=== PATIENT | male | born 1965 | race Caucasian/White ===

== ENCOUNTER 2024-05-10 13:37 | Inpatient (IN) | payer BC, SELFPAY ==
[2024-05-10] VITALS (7 sets, daily range): BP systolic 128–152; BP diastolic 67–95; BMI 24.1; BMI 23.9
--- NOTE | 2024-05-10 10:24 | ED.GENMED ---
ED Provider Triage
<Itz Cadet PA-C - Last Filed: 05/10/24 10:29>
-
Patient seen by provider in Triage?: Seen in Triage
Attestation: A medical screening examination has been initiated by a qualified medical provider. Based on the assessment performed at this time, it has been determined that an emergent medical condition may exist and the patient has been informed
that further medical evaluation and possible additional diagnostic testing may be needed.
HPI: 58-year-old male with past medical history of insulin-dependent diabetes presented to the ER with her that developed over the end and then noticing left lower remedy erythema, edema, pain and difficulty ambulating secondary to the pain. Has a
history of amputation of the toes to the right lower extremity. Has been taking some Advil for the pain. No other URI-like symptoms patient is on the full. Labs including blood cultures and lactic acid ordered. Given history I would lean
towards patient may need IV antibiotics and further evaluation on an inpatient basis.
GENERAL: Alert , in no apparent distress
EYE: No visual abnormalities.
NECK: Trachea midline
ENT: No visible abnormalities.
LUNGS: No acute respiratory distress
NEUROLOGICAL: Alert and oriented
SKIN: Skin intact. No visible changes.
MUSCULOSKELETAL: Moving extremities normally
PSYCH: Normal and appropriate interaction.
This is a medical evaluation conducted in person to initiate diagnostic evaluation and provide initial therapeutics. Please see further documentation by the treating clinician.
History of Present Illness
<Itz Cadet PA-C - Last Filed: 05/10/24 10:29>
General
Chief Complaint: Skin Problem
Time Seen by Provider: 05/10/24 11:10
<Cookie Gutierres PA-C - Last Filed: 05/10/24 12:28>
General
Source: patient
Exam Limitations: none
Nursing documentation reviewed up to this point in time: agreed with
History of Present Illness
History of Present Illness:
58 Y/O M H/O IDDM, htn, hld
here with L leg swelling and redness the past 2 days
pt says he actually started 5 days ago with feeling of fever/chills but didn't take his temp. he had no other sypmtoms
the following day he also had the chills intermittently and mild pain int he medial left ankle
pt says it was just sensitive to touch, felt almsot like he burned his skin but didn't have any redness
pt says the past 2-3 days he has occasinaolly had chills but not rigors like hw as having originally and the pain got a little worse in his left calf/ankle region
then the redness started yesterday but was faint
then today he has felt the redness signfiicantlyincrease
pt has h/o R sided osteomyelitis in his foot and required amputation
he called his diesel inspector and was told to come in
he had motrin this morning at 6 am
no vomiting, cold symptoms, numbness
Past History
<Itz Cadet PA-C - Last Filed: 05/10/24 10:29>
Past History
ED Past Medical History: HTN, Hypercholesterolemia and IDDM
ED Past Surgical History: Orthopedic (ampuation)
Social History
Tobacco: Non-smoker
Alcohol: None
Drug: None
Personal:
Living: with family
Review of Systems
<Cookie Gutierres PA-C - Last Filed: 05/10/24 12:28>
Review of Systems
Allergies reviewed?: Yes
All Other Systems: Not applicable
Phy Exam
<Cookie Gutierres PA-C - Last Filed: 05/10/24 12:28>
Physical Exam
Physical Exam:
GENERAL: Alert , in no apparent distress
EYE: pupils equal and reactive
NECK: Supple
ENT: o/p clr, mmm.
CARDIAC: Regular rate and rhythm . dp and pt pulses are dopplered easily
LUNGS: Clear breath sounds bilaterally, no acute respiratory distress, no wheezes/rales/rhonchi
ABDOMEN: Soft, without focal tenderness, no r/g, no cvat, normal bowel sounds
NEUROLOGICAL: Alert and oriented, no focal neuro deficits
SKIN: Warm and dry, skin intact. marked erythema of L prox foot/ankle/and anterior pretibial region up near his medial knee on the left
minimal tednerness
sensation intact
no obvious wounds but he does have plantar wart or open callus on the platnar L great toe region
and a few papules left medial ankle
calf and compartment soft
full rom of the joints
MUSCULOSKELETAL: No edema, well perfused. neg cordelia's sign
PSYCH: Normal and appropriate interaction.
Course
<Itz Cadet PA-C - Last Filed: 05/10/24 10:29>
Orders/Labs/Results
Orders:
Orders
05/10/24 10:39
Basic Metabolic Panel Urgent
Complete Blood Count/With Diff Urgent
Lactic Acid Q4H
Comment: CANCEL 2nd LACTIC ACID IF 1st LACTIC ACID IS LESS THAN 2
Blood Culture Q30M
VONDA Source: Blood/Venous
Specimen Description:
05/10/24 11:17
Venous Doppler Lwr Ext Bilat [US Periph Venous LOWER Ext Marcus] Urgent
Comment:
Reason For Exam: swelling
05/10/24 12:01
Blood Culture Q30M
VONDA Source: Blood/Venous
Specimen Description:
05/10/24 12:03
0.9% Sodium Chloride 1000 ml [Nss] 1,000 ml IV BOLUS
Piperacillin/Tazo 4.5 Gram [Zosyn] 4.5 gram in 100 ml IV NOW
CR Foot - Left Min 3 Views Urgent
Comment:
Reason For Exam: severe redness foot/ankle, diabetic
Tibia/Fibula, Left 2 View [CR Leg Tibia/fibula Left 2 Vw] Urgent
Comment:
Reason For Exam: cellulitis, diabetic
05/10/24 12:05
Vancomycin [Vancocin] 2,000 mg 0.9% Sodium Chloride 500 ml [Nss] 500 ml IV NOW
Abnormal Lab Results
05/10/24
10:39
WBC 16.0 H 10^3/uL
(4.8-10.8)
RBC 3.82 L 10^6/uL
(4.70-6.10)
Hgb 12.1 L g/dL
(13.0-18.0)
Hct 33.8 L %
(39.0-52.0)
MCH 31.7 H pg
(27.0-31.0)
RDW 11.3 L %
(11.5-14.5)
Abs Immat Gran (auto) 0.1 H 10^3/uL
(0-0.05)
Absolute Neuts (auto) 12.4 H 10^3/uL
(1.4-6.5)
Absolute Monos (auto) 2.0 H 10^3/uL
(0.1-0.6)
Neutrophils % 77.6 H %
(42.2-75.2)
Lymphocytes % 9.2 L %
(20.5-51.1)
Monocytes % 12.2 H %
(1.7-9.3)
Sodium 134 L mmol/L
(135-145)
Chloride 96 L mmol/L
(98-107)
Glucose 269 H mg/dl
(70-99)
05/10/24 10:39
05/10/24 10:39
Vital Signs
Initial and Last Documented VS:
Initial Vital Signs
Temp Pulse Resp BP Pulse Ox
36.8 C 86 18 136/70 100
05/10/24 10:21 05/10/24 10:21 05/10/24 10:21 05/10/24 10:21 05/10/24 10:21
Last Documented Vital Signs
Temp Pulse Resp BP Pulse Ox
37.1 C 82 23 145/88 99
05/10/24 12:00 05/10/24 12:00 05/10/24 12:00 05/10/24 11:53 05/10/24 12:03
<Cookie Gutierres PA-C - Last Filed: 05/10/24 12:28>
Orders/Labs/Results
Orders:
Orders
05/10/24 10:39
Basic Metabolic Panel Urgent
Complete Blood Count/With Diff Urgent
Lactic Acid Q4H
Comment: CANCEL 2nd LACTIC ACID IF 1st LACTIC ACID IS LESS THAN 2
Blood Culture Q30M
VONDA Source: Blood/Venous
Specimen Description:
05/10/24 11:17
Venous Doppler Lwr Ext Bilat [US Periph Venous LOWER Ext Marcus] Urgent
Comment:
Reason For Exam: swelling
05/10/24 12:01
Blood Culture Q30M
VONDA Source: Blood/Venous
Specimen Description:
05/10/24 12:03
0.9% Sodium Chloride 1000 ml [Nss] 1,000 ml IV BOLUS
Piperacillin/Tazo 4.5 Gram [Zosyn] 4.5 gram in 100 ml IV NOW
CR Foot - Left Min 3 Views Urgent
Comment:
Reason For Exam: severe redness foot/ankle, diabetic
Tibia/Fibula, Left 2 View [CR Leg Tibia/fibula Left 2 Vw] Urgent
Comment:
Reason For Exam: cellulitis, diabetic
05/10/24 12:05
Vancomycin [Vancocin] 2,000 mg 0.9% Sodium Chloride 500 ml [Nss] 500 ml IV NOW
Abnormal Lab Results
05/10/24
10:39
WBC 16.0 H 10^3/uL
(4.8-10.8)
RBC 3.82 L 10^6/uL
(4.70-6.10)
Hgb 12.1 L g/dL
(13.0-18.0)
Hct 33.8 L %
(39.0-52.0)
MCH 31.7 H pg
(27.0-31.0)
RDW 11.3 L %
(11.5-14.5)
Abs Immat Gran (auto) 0.1 H 10^3/uL
(0-0.05)
Absolute Neuts (auto) 12.4 H 10^3/uL
(1.4-6.5)
Absolute Monos (auto) 2.0 H 10^3/uL
(0.1-0.6)
Neutrophils % 77.6 H %
(42.2-75.2)
Lymphocytes % 9.2 L %
(20.5-51.1)
Monocytes % 12.2 H %
(1.7-9.3)
Sodium 134 L mmol/L
(135-145)
Chloride 96 L mmol/L
(98-107)
Glucose 269 H mg/dl
(70-99)
05/10/24 10:39
05/10/24 10:39
Vital Signs
Initial and Last Documented VS:
Initial Vital Signs
Temp Pulse Resp BP Pulse Ox
36.8 C 86 18 136/70 100
05/10/24 10:21 05/10/24 10:21 05/10/24 10:21 05/10/24 10:21 05/10/24 10:21
Last Documented Vital Signs
Temp Pulse Resp BP Pulse Ox
37.1 C 82 23 145/88 99
05/10/24 12:00 05/10/24 12:00 05/10/24 12:00 05/10/24 11:53 05/10/24 12:03
<Cookie Gutierres PA-C - Last Filed: 05/10/24 12:28>
MDM/Problems Addressed
Differential Diagnosis Includes:
celultis, osteo, nec fasc, PAD
MDM/Problems Addressed:
58 y/o M IDDM with significant cellulitis L foot/ankle/pretibial region
started with fever/chills on and tuesday, minimal discomfort left ankle without redness; redness started yesterday and much worse ; line drawn aorund it
normal pulse
afebrile
wbc 16 left shift
bg 290s
h/o previous osteo R foot requiring amp
do not suspect nec fasc, not really in pain
getting xrays
iv abx
<Cookie Gutierres PA-C - Last Filed: 05/10/24 12:28>
*Critical Care Note
Total Time (30-74mins, 75-104mins- exclusive of procedures): Not Applicable
ED Attending Note
<Itz Cadet PA-C - Last Filed: 05/10/24 10:29>
-
Portions of this chart may have been created with voice recognition software.� Occasional wrong word or��sound alike� substitutions may have occurred due to the inherent limitations of voice recognition software.
Discharge Plan
Departure
Patient Disposition: Admit
Date of Disposition: 05/10/24
Time of Disposition: 12:11
Presentation/result/management discussed w/ accepting MD/DO: Hospitalist
Discharge Problem:
Cellulitis
Prescriptions:
No Action
clopidogrel 75 mg tablet
75 mg PO DAILY
lisinopril 10 mg tablet
10 mg PO DAILY
insulin lispro [Humalog KwikPen Insulin] 100 unit/mL insulin pen
0 unit SC AC
Patient Comments:
08/25/22-if bs is over 150 plus one for every 20 carbs
insulin glargine [Basaglar KwikPen U-100 Insulin] 100 unit/mL (3 mL) insulin pen
25 unit SC DAILY
atorvastatin 10 mg tablet
10 mg PO DAILY
aspirin 81 mg Tablet,Delayed Release (Dr/Ec)
81 mg PO DAILY
diphenhydramine HCl 25 mg Capsule
25 mg PO Q4HPRN PRN (Reason: itching/hives) Qty: 0 0RF
acetaminophen 325 mg Tablet
650 mg PO Q6HPRN PRN (Reason: mild pain/ fever>100.5F) Qty: 0 0RF
gabapentin 300 mg Capsule
300 mg PO HS Qty: 30 0RF
ammonium lactate 12 % Lotion
1 applic topical BID Qty: 225 0RF
linezolid 600 mg tablet
600 mg PO BID Qty: 28 0RF
Interventions
Interventions:
*Risk Screen - Suicide Last Done: 05/10/24 10:24
*General Assessment Last Done: 05/10/24 12:01
*Neglect/Abuse Screening Last Done: 05/10/24 10:24
ED- Fall Risk Assessment Last Done: 05/10/24 10:26
*ED COVID-19 Vaccine History Last Done: 05/10/24 10:27
ED-Skin Assessment Last Done: 05/10/24 12:03
Discharge Date and Time
Print Language: DUTCH
[2024-05-10 10:58] LABS: % Basophils 0.3 % (0-2); % Eosinophils 0.2 % (0-6); % Immature Granulocytes 0.5 % (0-0.5); % Lymphocytes 9.2 % (20.5-51.1); % Monocytes 12.2 % (1.7-9.3); % Neutrophils 77.6 % (42.2-75.2); Absolute Basophils 0.1 10^3/uL (0-0.2); Absolute Immature Granulocytes 0.1 10^3/uL (0-0.05); Absolute Lymphocytes 1.5 10^3/uL (1.2-3.4); Absolute Neutrophils 12.4 10^3/uL (1.4-6.5); Hematocrit 33.8 % (39.0-52.0); Hemoglobin 12.1 g/dL (13.0-18.0); Mean Corp Hgb Conc. 35.8 g/dL (33.0-37.0); Mean Corpuscular Hgb 31.7 pg (27.0-31.0); Mean Corpuscular Volume 88.5 fL (80.0-94.0); Mean Platelet Volume 9.8 fL (7.4-10.4); Nucleated Red Blood Cells % 0 % (-); Platelet Count 268 10^3/uL (130-400); Red Blood Cell Count 3.82 10^6/uL (4.70-6.10); Red Cell Dist. Width 11.3 % (11.5-14.5)
[2024-05-10 11:10] LABS: Lactic Acid 1.8 mmol/L (0.7-2.0)
[2024-05-10 11:12] LABS: Blood Urea Nitrogen 17 mg/dl (9-20); Calcium 9.4 mg/dl (8.4-10.2); Carbon Dioxide 23 mmol/L (22-30); Chloride 96 mmol/L (98-107); Estimated Creatinine Clearance 61 ml/min; Glucose 269 mg/dl (70-99); Potassium 3.8 mmol/L (3.5-5.1); Sodium 134 mmol/L (135-145); eGFR > 60.00
[2024-05-10] MEDS: ZOSYN 100 IV (12:10)
[2024-05-10] MEDS: NSS 1000 IV (12:10)
--- NOTE | 2024-05-10 12:39 | HPS.HSE ---
Family Physician
-
Family Physician: Chantel Pan
Chief Complaint
-
Left lower extremity erythema, fever
History of Present Illness
58-year-old male from home complaining of fever Tuesday and Tuesday 6 days ago and left lower extremity and foot erythema along the foot/ankle/pretibial region with minimal discomfort in the left ankle he reports started this a.m. while driving his
daughter to school. He states he did not notice until this a.m. that the erythema was extending up the medial aspect of his left foot. He had concerns given he had prior amputation of all of his right toes below the proximal metatarsals and August
2021 with revision December 2021 at [facility]. He denies current fever, chills, headache, chest pain, palpitations, shortness breath, cough, abdominal pain, nausea, vomiting, diarrhea, urinary symptoms
He has past medical history of type 1 diabetes mellitus Dx age 5, with previous osteomyelitis right foot requiring amputation of all toes below the proximal phalanx in August 2021 requiring amputation then revision of surgery by Dr. Rae Mills at
[facility] in December 2021, essential HTN, PAD, HLD
Medical History
Past Medical History
Past Medical History: Reports Other (type 1 diabetes, hypertension, hypercholesterolemia, osteomyelitis of right toes status post amputation all toes below phalanx level August 2021 peripheral arterial disease )
Past Surgical History: Reports Other
Additional Past Surgical History:
Cataract extraction bilaterally with lens implants 15 years ago
osteomyelitis of right toes status post amputation all toes below phalanx level August 2021
Social History
Tobacco: Non-smoker
Alcohol: Occasional
Drug: None
Personal:
Living: Alone
Employment: Employed (senior quality assurance analyst)
Family History
Family History: Not pertinent
Allergies / Home Medications
Allergies reflects when Allergies were last updated in [facility].
Home Medications with original date entered in [facility]
Allergy/Medication List:
Allergies
Allergy/AdvReac Type Severity Reaction Status Date / Time
No Known Allergies Allergy Unverified 08/25/22 11:15
Home Medications
aspirin 81 mg tablet,delayed release 81 mg PO DAILY Blood clot prevention/tx 08/25/22
atorvastatin 10 mg tablet 10 mg PO DAILY High cholesterol 08/25/22
insulin glargine 100 unit/mL (3 mL) subcutaneous pen (Basaglar KwikPen U-100 Insulin) 22 unit SC DAILY Diabetes 08/25/22
insulin lispro 100 unit/mL subcutaneous pen (Humalog KwikPen (U-100) Insulin) 8 unit SC AC Diabetes 08/25/22
lisinopril 10 mg tablet 10 mg PO DAILY Blood pressure 08/25/22
ibuprofen 200 mg tablet (Advil) 600 mg PO DAILYPRN PRN mild pain 05/10/24
Review of Systems
-
History Source: Patient
A 12 point ROS was completed and negative except as noted: Yes
Constitutional: Reports Fever (6 days ago); Denies Chills
EENT: Denies Sore Throat or Runny Nose
Respiratory: Denies Cough, Hemoptysis or Trouble Breathing
Cardiac: Denies Chest Pain, Diaphoresis, Palpitations or Syncope
Abdomen/GI: Denies Abdominal Pain, Nausea, Vomiting, Diarrhea, Constipated or Bloody Stools
: Denies Dysuria, Frequency, Flank Pain, Incontinence, Difficulty Voiding or Discharge
Musculoskeletal: Reports Other (Erythema from dorsal foot extending up medial aspect of left lower extremity just below knee); Denies Joint Pain, Joint Swelling or Edema
Skin: Denies Itching or Rash
Neurological: Denies Dizzy, Headache or Weakness
Endocrine: Reports No Symptoms
Hematologic/Lymphatic: Reports No Symptoms
Psych: Reports Calm
Physical Exam
Vital Signs
Vital Signs
Temp Pulse Resp BP Pulse Ox
98.8 F 82 23 145/88 99
05/10/24 12:00 05/10/24 12:00 05/10/24 12:00 05/10/24 11:53 05/10/24 12:03
Physical Exam
General: Comfortable and Conversant; No Pain, Fever or Chills
HEENT: NormoCephalic, Anicteric, Moist mucous membranes, PERRLA, [place] Conjunctivae and No Ptosis
Respiratory: Clear; No Wheezes, Rales or Rhonchi
Cardiac: S1/S2, Regular Rhythm, Peripheral Edema and Other (Erythema from dorsal foot extending up medial aspect of left lower extremity just below knee); No Murmur, Rub, Gallop, Calf Tenderness or Nikko's Sign
Breast: Deferred by me
GI: Soft, Non Tender, Non Distended, Normal Bowel Sounds and No Hepatosplenomegaly
Rectal: Deferred by Provider
Genito-urinary: Deferred by me
Musculoskeletal: No Clubbing, No Cyanosis, No Edema and Other (Erythema from dorsal foot extending up medial aspect of left lower extremity just below knee no visible open wounds)
Skin: Warm and Dry; No Rash or Jaundice
Neuro: AO x 3, No Motor Deficits, Nonfocal/grossly intact, Cranial Nerves Intact and DTR's Intact & Symmetrical; No Slurred Speech, Facial Droop, Tremors or Sedated
Psych: Calm
Laboratory Results
-
05/10/24 10:39
05/10/24 10:39
Laboratory Results
Lactic Acid Cancelled 05/10/24 14:30
Impression/Plan
-
Impression/plan:
Admit to [facility]
#Left lower extremity cellulitis diabetic male
AUGUST 2022 Diabetic foot infection of left third/fourth toe with possible osteomyelitis, gangrene, ulcer status postdebridement of second and third distal and proximal phalanges
HX amputation right foot toes 2021
WBC 16 with left shift, currently afebrile 98.8F HR 82, BP 145/88
-Blood cultures x 2 ordered in ER
-Follow CBC, CMP
-IV Vancomycin, IV Zosyn
-Consult podiatry
Peripheral ultrasound bilateral lower extremities no acute DVT
#IDDM Dx age 5�uncontrolled
BS 269
-Accu-Cheks with SSI mild, check HgbA1c
-Continue Basaglar 22 units subcu daily changed to at bedtime
-Increase insulin lispro from 8 units with meals to 10 units with meals
#HTN�benign
BP 145/88
- cont lisinopril 10 mg daily
#PAD
Patient reports did not have angio on his right leg before requiring eventual amputation all toes below the proximal metatarsals
-Records of most recent vascular scan from February 2024 patient has on his phone I was unable to get copy from my email
Continue aspirin (was on Plavix 75 mg daily in August 2022)
DVT prophylaxis
Subcu heparin
Full code
--- NOTE | 2024-05-10 12:55 | W.PN.UPDATE ---
Update Note
Progress Note Update
This note serves as an addendum to the H&P by incident response consultant Kelly DUGGAN
HPI:
58M HX IDDM, HX previous osteo RIGHT foot requiring TMT amputation seen at ER
For evaluation of fever/chills over the weekend with cellultitis
- Associated with minimal discomfort left ankle without redness
- New onset of redness started yesterday and much worse today with clear demarcation
VS: afebrile
PE:
GENERAL: Alert , in no apparent distress
EYE: No visual abnormalities.
NECK: Trachea midline
ENT: No visible abnormalities.
LUNGS: No acute respiratory distress
NEUROLOGICAL: Alert and oriented
SKIN: Skin intact. No visible changes.
MUSCULOSKELETAL: erythematous Lt Cira with warmth hyperaesthesia
PSYCH: Normal and appropriate interaction.
Data:
WCC 16 left shift
BS 290s
XR Lt foot: pending
XR Tibia and Fibula: pending report
Last hospitalist admission: Date of Admission: 08/25/22 -Date of Discharge: 08/30/22
Principal Discharge diagnosis :
1. Diabetic foot infection of left third/fourth toe with possible osteomyelitis, gangrene, ulcer status postdebridement of second and third distal and proximal phalanges
2. GORDON-resolved
Chronic Discharge diagnosis :
Type 1 diabetes mellitus, essential hypertension, peripheral arterial disease, hyperlipi
ASSESSMENT & PLAN
Significant cellulitis LEFT foot/ankle/pretibial region:
Erythematous Lt Cira with warmth hyperaesthesia
HX previous osteo RIGHT foot requiring TMT amp @ [facility]
Clinically do not suspect necrotizing fascitis
NEG MRSA screen on 08/27/22
- BCx sent
- agree with empiric vancomycin and Zosyn
- Trend WCC and bands
- ID consult in AM
Inadequate DM control due to acute cellulitis
- add ISS mod
- cont. lantus 22 HS
- Increased Insulin lispro to [address] of 8U AC
- f/u A1C
Benign HTN
Nl eGFR and nl Cr
- Cont. Lisinopril
- avoid NSAIDS
HLD
- on Atorvastatin 10 qpm
-cont. baby ASA
DVT Px: SQH
Full code
IP MS
[2024-05-10] MEDS: VANCOCIN 535 MG IV (13:01)
[2024-05-10 17:38] LABS: Glucose - Point of Care 268 mg/dl (70-99)
[2024-05-10] MEDS: ZOSYN 50 IV (18:16)
[2024-05-10] MEDS: NOVOLOG FLEXPEN 10 UNITS SC (18:17)
[2024-05-10] MEDS: NOVOLOG FLEXPEN-MODERATE RESISTANCE 5 UNITS SC (18:18)
--- NOTE | 2024-05-10 19:27 | PHA.VAN.IN ---
Assessment
- Assessment
Renal Function: Appears elevated from baseline (08/30/22 BASELINE SCR: 1.2)
Concomitant Antimicrobials: ZOSYN
- Previous Dosing Experience
Previous Regimen: 750MG IV Q12H
Date of Regimen: 08/30/22
Provided Trough of: UNKNOWN
Provided AUC of: 490 PREDICTED
Patient's SCR is: Elevated compared to previous dosing experience (08/30/22 SCR: 1.2)
Patient's weight is: Decreased compared to previous dosing experience (08/26/22 WT = 75.8 KG)
AUC Dosing Plan
- Dosing Variables
Dosing Weight (kg): 71.9
Dosing CrCl (ml/min): 61
Vd coefficient (L/kg): 0.7
- Empiric Dosing
Initial / Loading Dose: 1750MG
Maintenance Regimen: 1500MG IV Q24H
Estimated AUC (mcg*h/mL): 564
Estimated Peak (mcg*h/mL): 40.7
Estimated Trough (mcg/ml): 11.8
Estimated Half Life (H): 12.6
Pharmacokinetics Vancomycin I
- -
Patient Age: 58
Patient Sex: Male
Vancomycin Day #: 1
Indication: Skin And Soft Tissue (CELLULITIS OF [L] FOOT )
Requesting Provider: URBAN
Height / Weight:
Height 5 ft 8 in
Actual Weight 71.299 kg
Pertinent Past Medical History: UNCONTROLLED DM; PRIOR AMPUTATIONS
- Vital Signs / Lab Results
Temp Pulse Resp BP Pulse Ox
98.2 F 82 18 152/72 99
05/10/24 17:33 05/10/24 17:33 05/10/24 17:33 05/10/24 17:33 05/10/24 17:33
Lab Results - Hematology
05/10/24
10:39
WBC 16.0 H
Lab Results - Chemistry
05/10/24
10:39
BUN 17
Creatinine 1.3
Estimated Creat Clear 61
05/10/24 05/10/24
10:39 14:30
Lactic Acid 1.8 Cancelled
[2024-05-10 21:13] LABS: Glucose - Point of Care 164 mg/dl (70-99)
[2024-05-10] MEDS: TYLENOL 650 MG PO (21:17)
[2024-05-10 23:57] LABS: Glucose - Point of Care 178 mg/dl (70-99)
[2024-05-11] MEDS: ZOSYN 50 IV ×2 (00:01→05:58)
[2024-05-11] MEDS: ROXICODONE 5 MG PO ×5 (00:47→21:38)
[2024-05-11 06:11] LABS: Glucose - Point of Care 163 mg/dl (70-99)
[2024-05-11] MEDS: VANCOCIN 530 MG IV (06:34)
[2024-05-11] MEDS: LANTUS 0.22 UNITS SC (06:38)
[2024-05-11 07:23] VITALS: BP 138/67
[2024-05-11 07:27] LABS: Glucose - Point of Care 175 mg/dl (70-99)
[2024-05-11 07:54] LABS: % Basophils 0.3 % (0-2); % Eosinophils 1.1 % (0-6); % Immature Granulocytes 0.4 % (0-0.5); % Lymphocytes 12.6 % (20.5-51.1); % Monocytes 9.8 % (1.7-9.3); % Neutrophils 75.8 % (42.2-75.2); Absolute Eosinophils 0.2 10^3/uL (0-0.7); Absolute Immature Granulocytes 0.1 10^3/uL (0-0.05); Absolute Lymphocytes 1.7 10^3/uL (1.2-3.4); Absolute Monocytes 1.3 10^3/uL (0.1-0.6); Absolute Neutrophils 10.1 10^3/uL (1.4-6.5); Hematocrit 30.6 % (39.0-52.0); Hemoglobin 10.9 g/dL (13.0-18.0); Mean Corp Hgb Conc. 35.6 g/dL (33.0-37.0); Mean Corpuscular Volume 89.7 fL (80.0-94.0); Nucleated Red Blood Cells % 0 % (-); Platelet Count 259 10^3/uL (130-400); Red Blood Cell Count 3.41 10^6/uL (4.70-6.10); Red Cell Dist. Width 11.4 % (11.5-14.5); White Blood Cell Count 13.3 10^3/uL (4.8-10.8)
[2024-05-11 08:48] LABS: ALT (SGPT) 17 U/L (0-50); AST (SGOT) 23 U/L (17-59); Albumin 3.2 g/dl (3.5-5.0); Alkaline Phosphatase 73 U/L (38-126); Blood Urea Nitrogen 11 mg/dl (9-20); Calcium 8.5 mg/dl (8.4-10.2); Carbon Dioxide 25 mmol/L (22-30); Chloride 101 mmol/L (98-107); Estimated Creatinine Clearance 80 ml/min; Glucose 151 mg/dl (70-99); Potassium 3.8 mmol/L (3.5-5.1); Sodium 137 mmol/L (135-145); Total Protein 5.9 g/dl (6.3-8.2); eGFR > 60.00
[2024-05-11] MEDS: ASPIR LOW (ENTERIC COATED) 81 MG PO (08:48)
[2024-05-11] MEDS: NOVOLOG FLEXPEN SC ×2 (08:48→13:34)
[2024-05-11] MEDS: ZESTRIL 10 MG PO (08:48)
[2024-05-11] MEDS: LIPITOR 10 MG PO (08:49)
[2024-05-11] MEDS: NOVOLOG FLEXPEN-MODERATE RESISTANCE SC ×3 (08:49→16:40)
--- NOTE | 2024-05-11 09:15 | PN.DE.MGMTRT ---
Insulin Management
- -
05/11/2024: Diabetes Management Consult
58 year old male with PMH: IDDM, hx of Right foot Osteo requiring TMT amputation. Presented for evaluation of fever/chills with cellulitis.
States he was taking Lantus 22 units which he takes daily in the morning and Humalog 8 units AC. Uses a CGM- Dexcom G7. He [facility] Endocrine [facility]i [facility] and reports that his last A1C 6 months ago was 5.8%, though, his
current A1C is 9.0% Cr 1.0, eGFR >60.
Pt is awake, alert, sitting up in bed, offers no complains, able to discuss diabetes mgt.
He reports a recent up trend in his glucose levels that he attributes to the acute infection. Otherwise, states he follows a diabetic diet and stays active.
Current diabetes regimen includes: AC NovoLog 10 units, Lantus 22 units, 1st dose was administered this morning and low corrective insulin with meals.
His glucose appears to be stable and in range, FBG 151 (V) and 164 POC. will make no changes to current regimen.
Will closely monitor through today and adjust insulin dose if needed.
Plan of care discussed with pt and Nurse.
Diabetes History
- -
Type of Diabetes: 1
Pre-Admission Diabetes Regimen
05/10/24 05/11/24
10:39 06:51
Creatinine 1.3 1.0
Insulin Pump Settings
IP Diabetes Regimen
05/10/24 05/10/24 05/10/24
10:39 17:37 21:12
Glucose 269 H
POC Glucose 268 H 164 H
05/10/24 05/11/24 05/11/24
23:55 06:09 06:51
Glucose 151 H
POC Glucose 178 H 163 H
05/11/24
07:26
Glucose
POC Glucose 175 H
Meal type: Dinner
Amount consumed: 80%
Patient Education
[2024-05-11 09:23] VITALS: BP 153/78; PULSE 87; O2SAT 96
[2024-05-11 09:29] VITALS: BP 153/78; PULSE 89; O2SAT 96
--- NOTE | 2024-05-11 11:29 | CON.ID ---
Consultation
-
Date/Time Consultation Requested: May 10, 20242247
Date/Time Consultation Performed: May 11, 2024 1130
Requesting Provider: Dr. Kelly Saxena
Performing Provider: Dr. Mary Campo
Reason for Consultation: Foot cellulitis
Chief Complaint / Past History
Chief Complaint
Left leg redness and pain
History of Present Illness
58-year-old male with history of diabetes mellitus type 1, neuropathy, history of right foot TMA who developed fever and chills on Tuesday. On Tuesday his temperature went up to 104. His left leg was normal at the time. On Tuesday, he felt
discomfort on the medial aspect of his left calf and ankle. Yesterday he noted bright red erythema from the foot up past the ankle. The erythema and then streaked up to his past his knee. He came to the ER. White count. X-ray of the left foot
and ankle negative osseous abnormality. He was started on vancomycin and Zosyn. Today he reports the edema and erythema have somewhat improved. He still has the ankle pain and calf pain. Peripheral ultrasound showed no DVT. No recent trauma.
No walking barefoot.
Past History
Additional Past Medical History:
DM1
HTN
PAD
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
Left 3rd/4th toe wounds s/p I+D, bone biopsy 08/2022
Allergy History:
No Known Allergies Allergy (Unverified 08/25/22 11:15)
Medications Reviewed: Yes
Current Antibiotics:
Vancomycin
Zosyn
Social History
Tobacco: Non-Smoker
Alcohol: Occasional
Drug: None
Personal:
Family History
Family History: Not Pertinent
Review of Systems
Review of Systems
General: Fever and Chills; Negative Change in Appetite
HEENT: Negative Sinus Problems, Headache or Pharyngitis
Cardiovascular: Negative Chest Pain or Dyspnea
Respiratory: Negative Dyspnea or Cough
Gasteroenterology: Negative Nausea, Vomiting or Diarrhea
Genital / Urological: Negative Dysuria or Flank Pain
Endocrine: Negative Weakness
Neurological: Negative Headache or Dizziness
All systems: All other systems were reviewed and were negative
Vital Signs
Temp Pulse Resp BP Pulse Ox
99.9 F 84 20 138/67 98
05/11/24 07:23 05/11/24 07:23 05/11/24 07:23 05/11/24 07:23 05/11/24 07:23
Physical Exam
Physical Exam
Constitutional: No Acute Distress and Comfortable
Eyes: No Conjunctival Hemorrhage and Sclera Anicteric
Cardiovascular: Regular Rate and S1/S2
Pulmonary: Clear
Gastrointestinal: Soft, Non Tender, Non Distended and Normal Bowel Sounds
Extremities: Edema (LLE 2+) and Erythema (Erythema from dorsum of foot to ankle up medial leg; receding from marked line. Positive warmth. )
Musculoskeletal: Other (Left ankle ROM intact)
Wound: Other (small callous plantar aspect of left hallux)
Neurological: AO x 3
Lab / Diagnostic Study Results
05/11/24 06:51
05/11/24 06:51
Abs Immat Gran (auto) 0.1 10^3/uL (0-0.05) H 05/11/24 06:51
Absolute Neuts (auto) 10.1 10^3/uL (1.4-6.5) H 05/11/24 06:51
Absolute Lymphs (auto) 1.7 10^3/uL (1.2-3.4) 05/11/24 06:51
Absolute Monos (auto) 1.3 10^3/uL (0.1-0.6) H 05/11/24 06:51
Absolute Basos (auto) 0.0 10^3/uL (0-0.2) 05/11/24 06:51
Immature Gran % 0.4 % (0-0.5) 05/11/24 06:51
Neutrophils % 75.8 % (42.2-75.2) H 05/11/24 06:51
Lymphocytes % 12.6 % (20.5-51.1) L 12 06:51
Monocytes % 9.8 % (1.7-9.3) H 05/11/24 06:51
Eosinophils % 1.1 % (0-6) 05/11/24 06:51
Basophils % 0.3 % (0-2) 05/11/24 06:51
Lactic Acid Cancelled 05/10/24 14:30
Microbiology Results
Micro:
05/10/24 10:39 Blood Culture - Preliminary
Blood/Venous No Growth in 24 hours- Final report to follow
05/10/24 17:48 MRSA Screen - Pending
Nose
05/10/24 12:01 Blood Culture - Pending
Blood/Venous
05/10/24 Left foot XRAY: No osseous abnormalities.
05/10/24 Peripheral vascular US: Normal. No evidence of deep venous thrombosis
Assessment / Plan
# Acute nonpurulent cellulitis LLE
# leukocytosis trending down
# DM1 A1c 5.8
Plan:
- Suspect group a streptococcal cellulitis.
-Narrow vancomycin/zosyn to cefazolin.
- Elevate LE
- Trend wbc
- Follow clinically.
--- NOTE | 2024-05-11 11:47 | PHA.VAN.FU ---
Vancomycin Assessment / Plan
- Assessment
Renal Function: SCR Decreasing (1.3->1.0)
WBC's are: Trending Down (16.0->13.3)
In the past 24 hrs, patient has been: Afebrile
Concomitant Antimicrobials: piperacillin/tazobactam
- Dosing Plan
Continue: vancomycin 1500 mg q24h - first dose 05/11 06 ( after 1750 LD 05/10)
- Monitoring Plan
No level(s) ordered at this time: consider levels in few days
- Follow Up
Pharmacy will continue to follow.
Vancomycin Follow UP
- -
Patient Age: 58
Patient Sex: Male
Vancomycin Day #: 2
Indication: Skin And Soft Tissue (CELLULITIS OF [L] FOOT )
Requesting Provider: URBAN
Height / Weight:
Height 5 ft 8 in
Actual Weight 71.299 kg
Pertinent Past Medical History: UNCONTROLLED DM; PRIOR AMPUTATIONS
- Vital Signs / Lab Results
Temp Pulse Resp BP Pulse Ox
99.9 F 84 20 138/67 98
05/11/24 07:23 05/11/24 07:23 05/11/24 07:23 05/11/24 07:23 05/11/24 07:23
Lab Results - Hematology
05/10/24 05/11/24
10:39 06:51
WBC 16.0 H 13.3 H
Lab Results - Chemistry
05/10/24 05/11/24
10:39 06:51
BUN 17 11
Creatinine 1.3 1.0
Estimated Creat Clear 61 80
Albumin 3.2 L
05/10/24 05/10/24
10:39 14:30
Lactic Acid 1.8 Cancelled
Microbiology Results
05/10/24 10:39 Blood Culture - Preliminary
Blood/Venous No Growth in 24 hours- Final report to follow
[2024-05-11 12:21] LABS: Glucose - Point of Care 146 mg/dl (70-99)
--- NOTE | 2024-05-11 13:12 | W.PN.HOSP.TC ---
Today's Communication/Plan
-
await ID
cont meds
follow cultures
Assessment / Plan
Assessment / Plan
pt is a 58 year old male
Significant cellulitis LEFT foot/ankle/pretibial region--redness outlined and seems to be improving--on vanco/zosyn--would consider changing to high dose ancef--await ID input
Type 1 DM with Inadequate control due to acute cellulitis--cont insulin and SSI--await A1C
Essential HTN--cont lisinopril--avoid NSAIDs
HLD --cont atorvastatin
DVT proph
code status -- FULL CODE
Anticipated Discharge: > 48 hours
Subjective/Interval History
-
Date of Service: May 11, 2024
pt states leg improving but still sore to touch
Objective Data
-
Labs:
Laboratory Results
05/11/24
06:51
WBC 13.3 H
Hgb 10.9 L
Hct 30.6 L
Plt Count 259
Sodium 137
Potassium 3.8
Chloride 101
Carbon Dioxide 25
BUN 11
Creatinine 1.0
Glucose 151 H
Calcium 8.5
Total Bilirubin 1.0
AST 23
ALT 17
Alkaline Phosphatase 73
Vital Signs:
max temp for 24 hours
05/10/24
23:40
Temp 99.2 F
Vital Signs
Temp Pulse Resp BP Pulse Ox
99.0 F 84 20 138/67 98
05/11/24 12:00 05/11/24 07:23 05/11/24 07:23 05/11/24 07:23 05/11/24 07:23
I&O
05/10/24 05/11/24 05/12/24
06:59 06:59 06:59
Intake Total 580 / 580
Balance 580 / 580
Review of Systems
-
All other systems: Reviewed and negative
Musculoskeletal: Reports Other (painful left leg)
Physical Exam
-
General: Well Developed, Well Nourished and No Apparent Distress
HEENT: Normocephalic and Atraumatic
Respiratory: Clear to Auscultation; Negative Wheezes or Rhonchi
Cardiac: Regular Rhythm and S1/S2; Negative Murmur
GI: Soft, Nontender, Nondistended and Normal Bowel Sounds
Musculoskeletal: No Clubbing, No Cyanosis, No Edema and Other (right trans metatarsal amputation--left leg red, warm, tender to touch--no swelling--redness does appear to be receding from outlines)
Neuro: Awake and Alert
Psych: Calm
[2024-05-11] MEDS: ANCEF 10 IV ×2 (14:12→21:38)
[2024-05-11 15:02] VITALS: BP 136/73
[2024-05-11] MEDS: TYLENOL 650 MG PO ×2 (15:56→21:39)
[2024-05-11 16:37] LABS: Glucose - Point of Care 148 mg/dl (70-99)
[2024-05-11] MEDS: NOVOLOG FLEXPEN 10 UNITS SC (16:40)
--- NOTE | 2024-05-11 16:45 | PTCARENOTE ---
Pt with intermittent nose bleed, large clot expelled from nose, no active bleeding, pt does have a dry npc cough lungs coarse with pox 90-92% deep breathing encouraged pt sat up in bed, pulse ox improved to 96%. Pt has no C/O shortness of breath or
changes in breathing, MD made aware,plan of care continues.
[2024-05-11] MEDS: OCEAN, SALINE MIST 1 SPRAYS NASAL (17:24)
--- NOTE | 2024-05-11 17:28 | CM ---
Patient seen at bedside with physician. Patient stated that he lives with his father and children. Patient has no DME at home no PCP and indicated that he was interested in residency clinic. Patient uses the [facility] pharmacy. Patient drives a stick
shift car and stated that he is very independent of ADL's. Patient plan is for discharge home with family, and will need to follow up with residentcy clinic as he has no PCP. CM will continue to follow for discharge planning needs.
Plan; home with VN vs home with no needs. will need to have PCP appointment with residency clinic if needing VN.
[2024-05-11 21:40] LABS: Glucose - Point of Care 67 mg/dl (70-99)
[2024-05-11 22:06] LABS: Glucose - Point of Care 72 mg/dl (70-99)
[2024-05-11 23:50] VITALS: BP 127/63
[2024-05-12] MEDS: DILAUDID 0.5 MG IV (00:03)
[2024-05-12 03:24] LABS: Glucose - Point of Care 134 mg/dl (70-99)
[2024-05-12 06:07] LABS: Glucose - Point of Care 151 mg/dl (70-99)
[2024-05-12] MEDS: ANCEF 10 IV ×3 (06:08→21:13)
[2024-05-12] MEDS: LANTUS 0.24 UNITS SC (06:08)
[2024-05-12 07:11] LABS: Glucose - Point of Care 155 mg/dl (70-99)
[2024-05-12 07:29] LABS: % Basophils 0.4 % (0-2); % Eosinophils 1.2 % (0-6); % Lymphocytes 15.1 % (20.5-51.1); % Monocytes 10.6 % (1.7-9.3); % Neutrophils 71.7 % (42.2-75.2); Absolute Basophils 0.1 10^3/uL (0-0.2); Absolute Eosinophils 0.2 10^3/uL (0-0.7); Absolute Immature Granulocytes 0.2 10^3/uL (0-0.05); Absolute Lymphocytes 2.4 10^3/uL (1.2-3.4); Absolute Monocytes 1.7 10^3/uL (0.1-0.6); Absolute Neutrophils 11.2 10^3/uL (1.4-6.5); Hematocrit 29.7 % (39.0-52.0); Hemoglobin 10.2 g/dL (13.0-18.0); Mean Corp Hgb Conc. 34.3 g/dL (33.0-37.0); Mean Corpuscular Hgb 31.6 pg (27.0-31.0); Mean Platelet Volume 9.7 fL (7.4-10.4); Nucleated Red Blood Cells % 0 % (-); Platelet Count 298 10^3/uL (130-400); Red Blood Cell Count 3.23 10^6/uL (4.70-6.10); Red Cell Dist. Width 11.4 % (11.5-14.5); White Blood Cell Count 15.6 10^3/uL (4.8-10.8)
[2024-05-12 07:30] VITALS: BP 125/66
[2024-05-12 07:46] LABS: ALT (SGPT) 14 U/L (0-50); AST (SGOT) 23 U/L (17-59); Albumin 3.1 g/dl (3.5-5.0); Alkaline Phosphatase 73 U/L (38-126); Blood Urea Nitrogen 14 mg/dl (9-20); Calcium 8.8 mg/dl (8.4-10.2); Carbon Dioxide 25 mmol/L (22-30); Chloride 101 mmol/L (98-107); Estimated Creatinine Clearance 73 ml/min; Glucose 153 mg/dl (70-99); Potassium 4.5 mmol/L (3.5-5.1); Sodium 139 mmol/L (135-145); Total Bilirubin 0.6 mg/dl (0.2-1.3); Total Protein 5.8 g/dl (6.3-8.2); eGFR > 60.00
[2024-05-12] MEDS: ASPIR LOW (ENTERIC COATED) 81 MG PO (08:42)
[2024-05-12] MEDS: LIPITOR 10 MG PO (08:42)
[2024-05-12] MEDS: ZESTRIL 10 MG PO (08:42)
[2024-05-12] MEDS: NOVOLOG FLEXPEN SC ×2 (08:45→13:00)
[2024-05-12] MEDS: NOVOLOG FLEXPEN-MODERATE RESISTANCE SC ×3 (08:45→18:07)
[2024-05-12] MEDS: OCEAN, SALINE MIST 2 SPRAYS NASAL (08:46)
[2024-05-12] MEDS: ROXICODONE 5 MG PO ×2 (11:13→17:59)
--- NOTE | 2024-05-12 12:09 | W.PN.HOSP.TC ---
Today's Communication/Plan
-
cont ancef
Assessment / Plan
Assessment / Plan
pt is a 58 year old male
Significant cellulitis LEFT foot/ankle/pretibial region--redness outlined and seems to be improving-- vanco/zosyn changed to high dose ancef (2 gms Q8H)-slow improvement--apprec ID
Type 1 DM with Inadequate control due to acute cellulitis--cont insulin and SSI--await A1C
Essential HTN--cont lisinopril--avoid NSAIDs
HLD --cont atorvastatin
DVT proph
code status -- FULL CODE
Anticipated Discharge: > 48 hours
Subjective/Interval History
-
Date of Service: May 12, 2024
pt concerned that his leg is not progressing as it quickly as it was after the abx change to ancef
Objective Data
-
Labs:
Laboratory Results
05/12/24
07:02
WBC 15.6 H
Hgb 10.2 L
Hct 29.7 L
Plt Count 298
Sodium 139
Potassium 4.5
Chloride 101
Carbon Dioxide 25
BUN 14
Creatinine 1.1
Glucose 153 H
Calcium 8.8
Total Bilirubin 0.6
AST 23
ALT 14
Alkaline Phosphatase 73
Vital Signs:
max temp for 24 hours
05/11/24
15:02
Temp 102 F H
Vital Signs
Temp Pulse Resp BP Pulse Ox
100.7 F H 91 14 125/66 94
05/12/24 07:30 05/12/24 07:30 05/12/24 07:30 05/12/24 07:30 05/12/24 07:30
I&O
12/06/24 12/07/24 12/08/24
06:59 06:59 06:59
Intake Total 580 / 580 420 / 420
Output Total 250 / 250
Balance 580 / 580 170 / 170
Review of Systems
-
All other systems: Reviewed and negative
Musculoskeletal: Reports Other (left leg pain)
Physical Exam
-
General: Well Developed, Well Nourished and No Apparent Distress
HEENT: Normocephalic and Atraumatic
Respiratory: Clear to Auscultation; Negative Wheezes or Rhonchi
Cardiac: Regular Rhythm and S1/S2; Negative Murmur
GI: Soft, Nontender, Nondistended and Normal Bowel Sounds
Musculoskeletal: No Clubbing, No Cyanosis, No Edema and Other (right trans metatarsal amputation--left leg, redness coalescing to dorsum of forr and ankle, looks improved from day prior)
Neuro: Awake and Alert
Psych: Calm
[2024-05-12 12:55] LABS: Glucose - Point of Care 136 mg/dl (70-99)
--- NOTE | 2024-05-12 13:00 | W.PN.ID1 ---
Date of Service
Date of Service: May 12, 2024
Today's Communication
Continue antibiotics.
Assessment / Plan
# Acute nonpurulent cellulitis LLE
# leukocytosis trending down
# DM1 A1c 5.8
Plan:
- Suspect group a streptococcal cellulitis.
- Continue with cefazolin.
- Elevate LE
- Trend wbc
- Follow clinically.
Chief Complaint
-: Cellulitis
Subjective / Review of Systems
Patient seen and examined. Reports ongoing, but diminished left lower extremity discomfort, especially when dependent. Some decrease in overall erythema.
Review of Systems: No Fever and No Chills
Vital Signs / Physical Exam
Vital Signs
Vital Signs
Temp Pulse Resp BP Pulse Ox
100.7 F H 91 14 125/66 94
05/12/24 07:30 05/12/24 07:30 05/12/24 07:30 05/12/24 07:30 05/12/24 07:30
Physical Exam
Constitutional: No Acute Distress, Comfortable and Non-toxic
Eyes: Sclera Anicteric
Pulmonary: Non Labored
Wound: Other (Left foot and distal extremity with some decrease in edema. Continues to have erythema, along with tenderness.)
Neurological: AO x 3
Objective Data
Lab Data
Lab Results
05/12/24 07:02
05/12/24 07:02
Estimated Creat Clear 73 ml/min 05/12/24 07:02
Lactic Acid Cancelled 05/10/24 14:30
Total Bilirubin 0.6 mg/dl (0.2-1.3) 05/12/24 07:02
AST 23 U/L (17-59) 05/12/24 07:02
ALT 14 U/L (0-50) 05/12/24 07:02
Alkaline Phosphatase 73 U/L (38-126) 05/12/24 07:02
Most recent labs reviewed.
Micro Results:
05/10/24 12:01 Blood Culture - Preliminary
Blood/Venous No Growth in 48 hours- Final report to follow
05/10/24 10:39 Blood Culture - Preliminary
Blood/Venous No Growth in 48 hours- Final report to follow
05/10/24 17:48 MRSA Screen - Final
Nose No Methicillin Resistant Staphylococcus aureus isolated.
05/10/24 Left foot XRAY: No osseous abnormalities.
05/10/24 Peripheral vascular US: Normal. No evidence of deep venous thrombosis
Care Review
Plan reviewed with: Physician (Hospitalist)
[2024-05-12] MEDS: TYLENOL 650 MG PO ×2 (14:10→21:21)
[2024-05-12 15:55] VITALS: BP 127/61
[2024-05-12 16:59] LABS: Glucose - Point of Care 111 mg/dl (70-99)
[2024-05-12] MEDS: NOVOLOG FLEXPEN 10 UNITS SC (18:07)
[2024-05-12] MEDS: VALTREX 500 MG PO (21:13)
[2024-05-12 21:43] LABS: Glucose - Point of Care 63 mg/dl (70-99)
[2024-05-12 22:12] LABS: Glucose - Point of Care 74 mg/dl (70-99)
[2024-05-12 23:00] VITALS: BP 159/79
[2024-05-13] MEDS: ROXICODONE 5 MG PO ×3 (02:19→14:35)
[2024-05-13 03:33] LABS: Glucose - Point of Care 172 mg/dl (70-99)
[2024-05-13 05:52] LABS: Glucose - Point of Care 199 mg/dl (70-99)
[2024-05-13] MEDS: LANTUS 0.24 UNITS SC (06:04)
[2024-05-13] MEDS: ANCEF 10 IV ×3 (06:05→21:02)
[2024-05-13 07:07] LABS: Glucose - Point of Care 212 mg/dl (70-99)
[2024-05-13 07:10] LABS: % Basophils 0.4 % (0-2); % Eosinophils 1.4 % (0-6); % Immature Granulocytes 0.7 % (0-0.5); % Lymphocytes 13.3 % (20.5-51.1); % Monocytes 10.3 % (1.7-9.3); % Neutrophils 73.9 % (42.2-75.2); Absolute Basophils 0.1 10^3/uL (0-0.2); Absolute Eosinophils 0.2 10^3/uL (0-0.7); Absolute Immature Granulocytes 0.1 10^3/uL (0-0.05); Absolute Lymphocytes 2.1 10^3/uL (1.2-3.4); Absolute Monocytes 1.7 10^3/uL (0.1-0.6); Absolute Neutrophils 11.9 10^3/uL (1.4-6.5); Hematocrit 30.5 % (39.0-52.0); Hemoglobin 10.6 g/dL (13.0-18.0); Mean Corp Hgb Conc. 34.8 g/dL (33.0-37.0); Mean Corpuscular Hgb 31.8 pg (27.0-31.0); Mean Corpuscular Volume 91.6 fL (80.0-94.0); Nucleated Red Blood Cells % 0 % (-); Platelet Count 354 10^3/uL (130-400); Red Blood Cell Count 3.33 10^6/uL (4.70-6.10); Red Cell Dist. Width 11.2 % (11.5-14.5); White Blood Cell Count 16.1 10^3/uL (4.8-10.8)
[2024-05-13 07:34] LABS: ALT (SGPT) 12 U/L (0-50); AST (SGOT) 23 U/L (17-59); Albumin 3.3 g/dl (3.5-5.0); Alkaline Phosphatase 94 U/L (38-126); Blood Urea Nitrogen 15 mg/dl (9-20); Calcium 8.8 mg/dl (8.4-10.2); Carbon Dioxide 23 mmol/L (22-30); Chloride 97 mmol/L (98-107); Estimated Creatinine Clearance 80 ml/min; Glucose 183 mg/dl (70-99); Potassium 4.4 mmol/L (3.5-5.1); Sodium 134 mmol/L (135-145); Total Bilirubin 0.6 mg/dl (0.2-1.3); Total Protein 6.3 g/dl (6.3-8.2); eGFR > 60.00
[2024-05-13 07:55] VITALS: BP 149/72
[2024-05-13] MEDS: ZESTRIL 10 MG PO (08:29)
[2024-05-13] MEDS: LIPITOR 10 MG PO (08:30)
[2024-05-13] MEDS: VALTREX 500 MG PO ×2 (08:30→20:38)
[2024-05-13] MEDS: ASPIR LOW (ENTERIC COATED) 81 MG PO (08:30)
[2024-05-13] MEDS: NOVOLOG FLEXPEN-MODERATE RESISTANCE SC ×3 (08:31→13:33)
[2024-05-13] MEDS: NOVOLOG FLEXPEN SC ×3 (08:31→13:33)
--- NOTE | 2024-05-13 08:45 | PTCARENOTE ---
Patient is refusing insulin coverage and standing order of insulin. Patient states, 'I only eat one meal a day. So i only take insulin once a day.' Patient encourage to eat three smaller meals with protein. Patient refused stating, 'I spoke with the
life skills educator and she said it was ok to eat once a day.'
--- NOTE | 2024-05-13 08:47 | PTCARENOTE ---
Patient is refusing Heparin, because when he blows his nose here is blood. RN attempted to educated patient on importance of heparin and he refused to listen, stating, 'Well when the doctor tells me, I'll listen.'
[2024-05-13 12:11] LABS: Glucose - Point of Care 164 mg/dl (70-99)
--- NOTE | 2024-05-13 12:55 | W.PN.HOSP.TC ---
Today's Communication/Plan
-
await ID input
Assessment / Plan
Assessment / Plan
pt is a 58 year old male
Significant cellulitis LEFT foot/ankle/pretibial region--redness outlined and seems to be improving-- vanco/zosyn changed to high dose ancef (2 gms Q8H)-slow improvement--apprec ID--running fevers silvano towards evening/night
Type 1 DM with Inadequate control due to acute cellulitis--cont insulin and SSI-- A1C=9.0
Essential HTN--cont lisinopril--avoid NSAIDs
HLD --cont atorvastatin
DVT proph
code status -- FULL CODE
Anticipated Discharge: > 48 hours
Subjective/Interval History
-
Date of Service: May 13, 2024
pt upset that leg not improving and still hurts
also upset that he cannot correct his sugar whenever he wants to (has Dexcom) and would give himself insulin if BS > 200 regardless of eating or not
Objective Data
-
Labs:
Laboratory Results
05/13/24
06:24
WBC 16.1 H
Hgb 10.6 L
Hct 30.5 L
Plt Count 354
Sodium 134 L
Potassium 4.4
Chloride 97 L
Carbon Dioxide 23
BUN 15
Creatinine 1.0
Glucose 183 H
Calcium 8.8
Total Bilirubin 0.6
AST 23
ALT 12
Alkaline Phosphatase 94
Vital Signs:
max temp for 24 hours
05/12/24
14:00
Temp 102.2 F H
Vital Signs
Temp Pulse Resp BP Pulse Ox
99.9 F 92 16 149/72 91
05/13/24 07:55 05/13/24 07:55 05/13/24 07:55 05/13/24 07:55 05/13/24 07:55
I&O
05/12/24 05/13/24 05/14/24
06:59 06:59 06:59
Intake Total 420 / 420 960 / 960
Output Total 250 / 250 275 / 275
Balance 170 / 170 685 / 685
Review of Systems
-
All other systems: Reviewed and negative
Physical Exam
-
General: Well Developed, Well Nourished and No Apparent Distress
HEENT: Normocephalic and Atraumatic
Respiratory: Clear to Auscultation; Negative Wheezes or Rhonchi
Cardiac: Regular Rhythm and S1/S2; Negative Murmur
GI: Soft, Nontender, Nondistended and Normal Bowel Sounds
Musculoskeletal: No Clubbing, No Cyanosis, No Edema and Other (left leg redness coalescing towards foot and ankle with more deeper red and purple--right TMA)
Neuro: Awake and Alert
Psych: Calm
--- NOTE | 2024-05-13 13:00 | PTCARENOTE ---
Patient refusing lunch time insulin, because he is not eating lunch. Patient c/o lips & mouth feeling dry. RN encouraged patient to increase water intake. Patient states, 'That is not going to help.'
--- NOTE | 2024-05-13 15:13 | W.PN.ID1 ---
Date of Service
Date of Service: May 13, 2024
Today's Communication
Continue with cefazolin for today.
Assessment / Plan
# Acute nonpurulent cellulitis LLE
# leukocytosis
# DM1 A1c 5.8
Plan:
- Suspect group a streptococcal cellulitis.
- Continue with cefazolin.
- Elevate LE
- Trend wbc
- Follow clinically.
Chief Complaint
-: Cellulitis
Subjective / Review of Systems
Patient seen and examined. Notes ongoing discomfort in the left leg.
Review of Systems: No Fever and No Chills
Vital Signs / Physical Exam
Vital Signs
Vital Signs
Temp Pulse Resp BP Pulse Ox
99.7 F 92 16 149/72 91
05/13/24 14:31 05/13/24 07:55 05/13/24 07:55 05/13/24 07:55 05/13/24 07:55
Physical Exam
Constitutional: No Acute Distress, Comfortable and Non-toxic
Eyes: Sclera Anicteric
Pulmonary: Non Labored
Wound: Other (Left foot and distal extremity with persistent edema, although slight decrease from yesterday's exam. Continues to have erythema, along with tenderness.)
Neurological: AO x 3
Objective Data
Lab Data
Lab Results
05/13/24 06:24
05/13/24 06:24
Estimated Creat Clear 80 ml/min 05/13/24 06:24
Lactic Acid Cancelled 05/10/24 14:30
Total Bilirubin 0.6 mg/dl (0.2-1.3) 05/13/24 06:24
AST 23 U/L (17-59) 05/13/24 06:24
ALT 12 U/L (0-50) 05/13/24 06:24
Alkaline Phosphatase 94 U/L (38-126) 05/13/24 06:24
Most recent labs reviewed.
Micro Results:
05/10/24 12:01 Blood Culture - Preliminary
Blood/Venous No Growth in 72 hours- Final report to follow
05/10/24 10:39 Blood Culture - Preliminary
Blood/Venous No Growth in 72 hours- Final report to follow
05/10/24 17:48 MRSA Screen - Final
Nose No Methicillin Resistant Staphylococcus aureus isolated.
05/10/24 Left foot XRAY: No osseous abnormalities.
05/10/24 Peripheral vascular US: Normal. No evidence of deep venous thrombosis
Care Review
Plan reviewed with: Physician (Hospitalist)
[2024-05-13 15:30] VITALS: BP 157/71
[2024-05-13 16:46] LABS: Glucose - Point of Care 161 mg/dl (70-99)
[2024-05-13] MEDS: NOVOLOG FLEXPEN 10 UNITS SC (18:35)
[2024-05-13] MEDS: NOVOLOG FLEXPEN-MODERATE RESISTANCE 1 UNITS SC (18:36)
--- NOTE | 2024-05-13 18:44 | PTCARENOTE ---
Patient needed much encouragement to let RN administer dinner time insulin coverage. Patient states, 'You did not give me insulin all day, now you're going to give me a huge dose.' RN made patient aware he will be receiving 11 units.
[2024-05-13 21:36] LABS: Glucose - Point of Care 88 mg/dl (70-99)
[2024-05-13 23:00] VITALS: BP 137/65
[2024-05-13 23:58] LABS: COVID-19 Antigen Negative (Negative)
[2024-05-14 01:12] LABS: Glucose - Point of Care 95 mg/dl (70-99)
[2024-05-14 06:22] LABS: Glucose - Point of Care 113 mg/dl (70-99)
[2024-05-14] MEDS: ANCEF 10 IV (06:22)
[2024-05-14] MEDS: LANTUS 0.24 UNITS SC (06:22)
[2024-05-14 07:00] VITALS: BP 142/65
[2024-05-14 07:31] LABS: % Basophils 0.5 % (0-2); % Lymphocytes 9.5 % (20.5-51.1); % Monocytes 11.6 % (1.7-9.3); % Neutrophils 76.4 % (42.2-75.2); Absolute Basophils 0.1 10^3/uL (0-0.2); Absolute Eosinophils 0.2 10^3/uL (0-0.7); Absolute Immature Granulocytes 0.2 10^3/uL (0-0.05); Absolute Lymphocytes 1.5 10^3/uL (1.2-3.4); Absolute Monocytes 1.8 10^3/uL (0.1-0.6); Absolute Neutrophils 11.8 10^3/uL (1.4-6.5); Hematocrit 29.8 % (39.0-52.0); Hemoglobin 10.5 g/dL (13.0-18.0); Mean Corp Hgb Conc. 35.2 g/dL (33.0-37.0); Mean Corpuscular Hgb 31.7 pg (27.0-31.0); Mean Platelet Volume 9.5 fL (7.4-10.4); Nucleated Red Blood Cells % 0 % (-); Platelet Count 383 10^3/uL (130-400); Red Blood Cell Count 3.31 10^6/uL (4.70-6.10); Red Cell Dist. Width 11.1 % (11.5-14.5); White Blood Cell Count 15.5 10^3/uL (4.8-10.8)
[2024-05-14 07:43] LABS: Glucose - Point of Care 105 mg/dl (70-99)
--- NOTE | 2024-05-14 08:03 | PN.DE.MGMTRT ---
Insulin Management
- -
05/14/2024: Diabetes Management F/U:
58 year old male with PMH: IDDM, hx of Right foot Osteo requiring TMT amputation. Presented for evaluation of fever/chills with cellulitis.
States he was taking Lantus 22 units which he takes daily in the morning and Humalog 8 units AC. Uses a CGM- Dexcom G7. He routinely sees Endocrine Dr. Maxim Golden with [facility] and reports that his last A1C 6 months ago was 5.8%, though, his
current A1C is 9.0% Cr 1.0, eGFR >60.
Pt is awake, alert, resting in bed, offers no complains, able to discuss diabetes mgt.
05/13 pre meal glucose stable and in range 161 to 212, FBG 101(V), 105 POC this AM.
Will make no changes to current regimen: AC NovoLog 10 units, Lantus 22 units, and low corrective insulin with meals.
Will closely monitor glucose and adjust insulin dose if needed.
Plan of care discussed with pt and Nurse.
Diabetes History
- -
Type of Diabetes: 1
Pre-Admission Diabetes Regimen
Lab Results
Hemoglobin A1c 9.0 % (4.0-5.6) H 05/11/24 06:51
Insulin Pump Settings
IP Diabetes Regimen
05/13/24 05/13/24 05/13/24
12:10 16:45 21:35
POC Glucose 164 H 161 H 88
05/14/24 05/14/24 05/14/24
01:11 06:21 07:41
POC Glucose 95 113 H 105 H
Meal type: Dinner
Meal type: Lunch
Meal type: Breakfast
Amount consumed: 100%
Amount consumed: 100%
Amount consumed: 0
Patient Education
[2024-05-14 08:05] LABS: ALT (SGPT) < 10 U/L (0-50); AST (SGOT) 25 U/L (17-59); Albumin 3.1 g/dl (3.5-5.0); Alkaline Phosphatase 77 U/L (38-126); Blood Urea Nitrogen 11 mg/dl (9-20); Calcium 8.7 mg/dl (8.4-10.2); Carbon Dioxide 25 mmol/L (22-30); Chloride 97 mmol/L (98-107); Estimated Creatinine Clearance 80 ml/min; Glucose 101 mg/dl (70-99); Magnesium 1.8 mg/dl (1.6-2.3); Potassium 4.4 mmol/L (3.5-5.1); Sodium 134 mmol/L (135-145); Total Bilirubin 0.5 mg/dl (0.2-1.3); Total Protein 6.1 g/dl (6.3-8.2); eGFR > 60.00
[2024-05-14] MEDS: NOVOLOG FLEXPEN-MODERATE RESISTANCE SC ×3 (08:15→17:20)
[2024-05-14] MEDS: ROXICODONE 5 MG PO ×2 (09:03→14:58)
[2024-05-14] MEDS: NOVOLOG FLEXPEN SC ×3 (09:04→18:36)
[2024-05-14] MEDS: ASPIR LOW (ENTERIC COATED) 81 MG PO (09:05)
[2024-05-14] MEDS: VALTREX 500 MG PO ×2 (09:05→19:39)
[2024-05-14] MEDS: ZESTRIL 10 MG PO (09:06)
[2024-05-14] MEDS: LIPITOR 10 MG PO (09:06)
--- NOTE | 2024-05-14 10:34 | W.PN.ID1 ---
Date of Service
Date of Service: May 14, 2024
Today's Communication
Change cefazolin to linezolid 600mg po bid, which also acts as toxin inhibitor for strep.
Assessment / Plan
# Acute nonpurulent cellulitis LLE
# leukocytosis persists
# Fever resolved
# DM1 A1c 5.8
Plan:
- Suspect group a streptococcal cellulitis.
- Cellulitis slow to improve.
- Change cefazolin to linezolid 600mg po bid, which also acts as toxin inhibitor for strep.
- Elevate LE
- Trend wbc
- Follow clinically.
Chief Complaint
-: Cellulitis
Subjective / Review of Systems
+ calf pain with ambulation
Vital Signs / Physical Exam
Vital Signs
Vital Signs
Temp Pulse Resp BP Pulse Ox
98.8 F 90 16 142/65 94
05/14/24 07:00 05/14/24 09:06 05/14/24 07:00 05/14/24 09:06 05/14/24 07:00
Physical Exam
Constitutional: No Acute Distress and Comfortable
Cardiovascular: Regular Rate and S1/S2
Pulmonary: Clear
Gastrointestinal: Soft, Non Tender, Non Distended and Normal Bowel Sounds
Extremities: Edema (LLE decreased) and Erythema (erythema remains bright now more localized to above ankle to foot, + warmth)
Neurological: AO x 3
Objective Data
Lab Data
Lab Results
05/14/24 07:09
05/14/24 07:09
Estimated Creat Clear 80 ml/min 05/14/24 07:09
Lactic Acid Cancelled 05/10/24 14:30
Total Bilirubin 0.5 mg/dl (0.2-1.3) 05/14/24 07:09
AST 25 U/L (17-59) 05/14/24 07:09
ALT < 10 U/L (0-50) 05/14/24 07:09
Alkaline Phosphatase 77 U/L (38-126) 05/14/24 07:09
Most recent labs reviewed.
Micro Results:
05/13/24 23:35 Influenza Types A & B (ERASTO) - Final
Nasal Swab Negative for Influenza A & B, NAAT
Negative results must be combined with clinical observations
and patient history.
Nucleic Acid Amplification test (NAAT)performed on the
[employer] platform.
05/10/24 12:01 Blood Culture - Preliminary
Blood/Venous No Growth in 72 hours- Final report to follow
05/10/24 10:39 Blood Culture - Preliminary
Blood/Venous No Growth in 72 hours- Final report to follow
05/10/24 17:48 MRSA Screen - Final
Nose No Methicillin Resistant Staphylococcus aureus isolated.
05/10/24 Left foot XRAY: No osseous abnormalities.
05/10/24 Peripheral vascular US: Normal. No evidence of deep venous thrombosis
[2024-05-14 11:56] LABS: Glucose - Point of Care 97 mg/dl (70-99)
[2024-05-14] MEDS: HYDROPHOR 1 APPLIC TOPICAL (12:08)
[2024-05-14] MEDS: ZYVOX 600 MG PO ×2 (12:08→19:40)
--- NOTE | 2024-05-14 14:17 | W.PN.HOSP.TC ---
Today's Communication/Plan
-
Linezolid noted
CT LLE ordered
Assessment / Plan
Assessment / Plan
58yo M with PMHx of DM, GHTN came with 1 week of worsening LLE redness and pain and managed for cellulitis
A/P:
#LLE cellulituis
neg for DVT
Switched to Linezolid as per ID on 05/14/24 2/2 slow improvement
follow WBC and fever curve
CT LLE
#DM type 1 with neuropathy
Insulin SS, accuchecks, DM diet
#Essential HTN
cont home meds
DVT ppx hep
Full code
I have spent at least 57min reviewing chart, test results, communication with consultants and direct patient care
Anticipated Discharge: 24 - 48 hours
Subjective/Interval History
-
Date of Service: May 14, 2024
Objective Data
-
Labs:
Laboratory Results
05/14/24
07:09
WBC 15.5 H
Hgb 10.5 L
Hct 29.8 L
Plt Count 383
Sodium 134 L
Potassium 4.4
Chloride 97 L
Carbon Dioxide 25
BUN 11
Creatinine 1.0
Glucose 101 H
Calcium 8.7
Total Bilirubin 0.5
AST 25
ALT < 10
Alkaline Phosphatase 77
Vital Signs:
Vital Signs
Temp Pulse Resp BP Pulse Ox
98.8 F 90 16 142/65 94
05/14/24 07:00 05/14/24 09:06 05/14/24 07:00 05/14/24 09:06 05/14/24 07:00
I&O
05/13/24 05/14/24 05/15/24
06:59 06:59 06:59
Intake Total 960 / 960 1140 / 1140
Output Total 275 / 275 975 / 975
Balance 685 / 685 165 / 165
Review of Systems
-
History Source: Patient
All other systems: Reviewed and negative
Musculoskeletal: Reports Other (LLE pain)
Physical Exam
-
General: No Apparent Distress
HEENT: Normocephalic
Respiratory: Clear to Auscultation
Cardiac: Regular Rhythm
GI: Soft, Nontender and Nondistended
Genito-urinary: No Costovertebral Tender
Musculoskeletal: No Clubbing, No Cyanosis and No Edema
Neuro: Awake, Alert, Oriented and AO x 3
Psych: Calm
[2024-05-14 14:52] VITALS: O2SAT 94
[2024-05-14 15:16] VITALS: BP 131/62
--- NOTE | 2024-05-14 16:32 | CM ---
CM continues to follow for discharge planning needs.
Currently ambulating short distances with RW, however pain limits his ability to ambulate.
[2024-05-14 17:17] LABS: Glucose - Point of Care 67 mg/dl (70-99)
[2024-05-14 17:48] LABS: Glucose - Point of Care 67 mg/dl (70-99)
[2024-05-14 18:20] LABS: Glucose - Point of Care 98 mg/dl (70-99)
[2024-05-14] MEDS: NOVOLOG FLEXPEN 8 UNITS SC (18:38)
--- NOTE | 2024-05-14 20:00 | CON.MD ---
Consultation - Medical
-
Date/Time Consultation Requested: not received
Date/Time Consultation Performed: May 14, 2024 7:10PM
Requesting Provider: Kelly Shelton
Performing Provider: Dr. Judy Bowen
Reason for Consultation: LLE cellulitis
Chief Complaint / Past History
Chief Complaint:
Left leg redness and pain
History of Present Illness:
This is a 58-year-old male who is well known to me with history of diabetes mellitus type 1, PAD, neuropathy, history of right foot TMA who developed fever and chills on Tuesday. On Tuesday his temperature went up to 104. His left leg was normal
at the time. On Tuesday, he felt discomfort to his left calf and ankle, and subsequently noted redness from the foot up past the ankle, he called our office and was recommended to come to the ED. He denies recent trauma or injury. He does not
recall any precipitationg factors such as a new shoe or activity
Past History
Additional Past Medical History:
DM1
HTN
PAD
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
Left 3rd/4th toe wounds s/p I+D, bone biopsy 08/2022
Allergy History:
No Known Allergies
Medications Reviewed: Yes
Current Antibiotics:
Vancomycin- dc today
Zosyn-dc'd today
Linezolid-started today
Social History
Tobacco: Non-Smoker
Alcohol: Occasional
Drug: None
Personal:
Family History
Family History: Not Pertinent
Review of Systems
Review of Systems
General: Fever and Chills; Negative Change in Appetite
HEENT: Negative Sinus Problems, Headache or Pharyngitis
Cardiovascular: Negative Chest Pain or Dyspnea
Respiratory: Negative Dyspnea or Cough
Gasteroenterology: Negative Nausea, Vomiting or Diarrhea
Genital / Urological: Negative Dysuria or Flank Pain
Endocrine: Negative Weakness
Neurological: Negative Headache or Dizziness
All systems: All other systems were reviewed and were negative
Vital Signs
Temp Pulse Resp BP Pulse Ox
99.8 F 85 18 131/62 94
05/14/24 15:16 05/14/24 15:16 05/14/24 15:16 05/14/24 15:16 05/14/24 15:16
Lab / Diagnostic Study Results 05/14/24 07:09
05/14/24 07:09
05/14/24 05/14/24 05/14/24
06:21 07:09 07:41
WBC 15.5 H
RBC 3.31 L
Hgb 10.5 L
Hct 29.8 L
MCH 31.7 H
RDW 11.1 L
Abs Immat Gran (auto) 0.2 H
Absolute Neuts (auto) 11.8 H
Absolute Monos (auto) 1.8 H
Immature Gran % 1.0 H
Neutrophils % 76.4 H
Lymphocytes % 9.5 L
Monocytes % 11.6 H
Sodium 134 L
Chloride 97 L
Glucose 101 H
Total Protein 6.1 L
Albumin 3.1 L
POC Glucose 113 H 105 H
05/14/24 05/14/24
17:15 17:46
WBC
RBC
Hgb
Hct
MCH
RDW
Abs Immat Gran (auto)
Absolute Neuts (auto)
Absolute Monos (auto)
Immature Gran %
Neutrophils %
Lymphocytes %
Monocytes %
Sodium
Chloride
Glucose
Total Protein
Albumin
POC Glucose 67 L 67 L
I reviewed xrays personally
Physical Exam
Physical Exam
Constitutional: No Acute Distress, Comfortable
LE exam: DPA and SUPERVISOR MARBLE +1/4 RLE, DPA 1/4 LLE and feeble SUPERVISOR MARBLE. CFT >3s to toes B/L. Hemmorrhagic callus left foot -with purulence and full thickness ulcer noted. No cellulitis to the toe, wound is deep to SQ, but does not appear to penetrate bone.
++edema and erythema dorsal extensors from TA tendon to anterior ankle. Decreased and painful ROM to the left ankle. Cellulitis improved to the calf but localized to the ankle.
ASSESSMENT:
1-IDDM with PAD. Last arterial u/s 02/2024 at [facility] demonstrated mild arterial occlusive disease with JEY 0.95 RLE, 0.77LLE and TBI of 0.33 left foot suggesting severe small vessel disease
2-IDDM with DPN
3-H/O TMA RLE
4-Infected ulcer left great toe- there was a past history of ulceration to this toe that had healed, possibility of OM. Ulceration was prepped with betadine and with sterile 15 scalpel blade was sharply and excisionally debrided throughthe
epidermis, dermis into ubq. Creamy dishwater purulence was expressed and cleansed thoroughly from the wound. A culture was taken from the wound post debridement and cleanse. Wound care orders were placed on chart.
5-Cellulitis- severe LLE. ABT per ID
6- Concern for septic ankle joint and possible OM of the left hallux and/ or septic hallux IPJ
- Will order MRI to evaluate the ankle and hallux IPJ for septic joint and possible OM
Will follow closely with you
[2024-05-14 21:43] LABS: Glucose - Point of Care 90 mg/dl (70-99)
[2024-05-14 23:55] VITALS: BP 137/85
[2024-05-15] MEDS: ROXICODONE 5 MG PO ×3 (00:43→23:40)
[2024-05-15 00:50] LABS: Glucose - Point of Care 68 mg/dl (70-99)
[2024-05-15 01:21] LABS: Glucose - Point of Care 102 mg/dl (70-99)
[2024-05-15 03:28] LABS: Glucose - Point of Care 143 mg/dl (70-99)
[2024-05-15] MEDS: LANTUS 0.24 UNITS SC (05:48)
[2024-05-15 05:51] LABS: Glucose - Point of Care 163 mg/dl (70-99)
[2024-05-15 07:09] LABS: Glucose - Point of Care 163 mg/dl (70-99)
[2024-05-15 07:22] VITALS: BP 135/62
[2024-05-15 07:25] LABS: Blood Urea Nitrogen 14 mg/dl (9-20); Calcium 8.6 mg/dl (8.4-10.2); Carbon Dioxide 26 mmol/L (22-30); Chloride 97 mmol/L (98-107); Estimated Creatinine Clearance 80 ml/min; Glucose 149 mg/dl (70-99); Potassium 4.8 mmol/L (3.5-5.1); Sodium 133 mmol/L (135-145); eGFR > 60.00
--- NOTE | 2024-05-15 07:26 | PN.DE.MGMTRT ---
Insulin Management
- -
05/15/2024: Diabetes Management Follow up:
Patient admitted LLE pain redness - cellulitis. PMH: Type 1 diabetes since age 5, hx of Right foot Osteo requiring TMT amputation.
States he was taking Lantus 22 units which he takes daily in the morning and Humalog 8 units AC. Uses a CGM- Dexcom G7. He routinely sees Endocrine Dr. Chantel Pan with [facility] and reports that his last A1C 6 months ago was 5.8%, though,
his current A1C is 9.0% Cr 1.0, eGFR >60.
Pt is awake, alert, resting in bed, offers no complains, able to discuss diabetes mgt.
05/14 Glucose down to 67 pre dinner and 68 @ hs.
Will reduce moderate corrective to low and AC novolog to 8 units with breakfast and dinner and 5 units with lunch, with Lantus 24 units in AM.
Will follow for further needed adjustments.
Plan of care discussed with pt and Nurse.
Diabetes History
- -
Type of Diabetes: 1
Pre-Admission Diabetes Regimen
05/14/24 05/15/24
07:09 06:37
Creatinine 1.0 1.0
Lab Results
Hemoglobin A1c 9.0 % (4.0-5.6) H 05/11/24 06:51
Insulin Pump Settings
IP Diabetes Regimen
05/14/24 05/14/24 05/14/24
07:09 07:41 11:54
Glucose 101 H
POC Glucose 105 H 97
05/14/24 05/14/24 05/14/24
17:15 17:46 18:18
Glucose
POC Glucose 67 L 67 L 98
05/14/24 05/15/24 05/15/24
21:42 00:49 01:18
Glucose
POC Glucose 90 68 L 102 H
12/03/2905/15/24 05/15/24
03:27 05:50 06:37
Glucose 149 H
POC Glucose 143 H 163 H
05/15/24
07:08
Glucose
POC Glucose 163 H
Meal type: Lunch
Meal type: Breakfast
Amount consumed: Patient refused
Amount consumed: Patient refused
Patient Education
[2024-05-15 07:32] LABS: % Basophils 0.3 % (0-2); % Eosinophils 1.8 % (0-6); % Immature Granulocytes 0.6 % (0-0.5); % Lymphocytes 10.1 % (20.5-51.1); % Monocytes 11.9 % (1.7-9.3); % Neutrophils 75.3 % (42.2-75.2); Absolute Eosinophils 0.3 10^3/uL (0-0.7); Absolute Immature Granulocytes 0.1 10^3/uL (0-0.05); Absolute Lymphocytes 1.4 10^3/uL (1.2-3.4); Absolute Monocytes 1.7 10^3/uL (0.1-0.6); Absolute Neutrophils 10.5 10^3/uL (1.4-6.5); Hematocrit 27.1 % (39.0-52.0); Hemoglobin 9.8 g/dL (13.0-18.0); Mean Corp Hgb Conc. 36.2 g/dL (33.0-37.0); Mean Corpuscular Hgb 32.8 pg (27.0-31.0); Mean Corpuscular Volume 90.6 fL (80.0-94.0); Mean Platelet Volume 9.9 fL (7.4-10.4); Nucleated Red Blood Cells % 0 % (-); Platelet Count 378 10^3/uL (130-400); Red Blood Cell Count 2.99 10^6/uL (4.70-6.10); Red Cell Dist. Width 11.1 % (11.5-14.5)
[2024-05-15] MEDS: VALTREX 500 MG PO ×2 (09:16→19:59)
[2024-05-15] MEDS: NOVOLOG FLEXPEN SC (09:16)
[2024-05-15] MEDS: NOVOLOG FLEXPEN-LOW RESISTANCE SC ×2 (09:16→12:57)
[2024-05-15] MEDS: ZESTRIL 10 MG PO (09:17)
[2024-05-15] MEDS: ASPIR LOW (ENTERIC COATED) 81 MG PO (09:18)
[2024-05-15] MEDS: HYDROPHOR 1 APPLIC TOPICAL (09:18)
[2024-05-15] MEDS: LIPITOR 10 MG PO (09:18)
[2024-05-15] MEDS: BACTROBAN 2% OINTMENT 1 APPLIC TOPICAL (09:18)
[2024-05-15] MEDS: ZYVOX 600 MG PO ×2 (09:19→19:59)
[2024-05-15 12:07] LABS: Glucose - Point of Care 193 mg/dl (70-99)
--- NOTE | 2024-05-15 12:29 | W.PN.HOSP.TC ---
Today's Communication/Plan
-
cont abx, pendign wound Cx
Assessment / Plan
Assessment / Plan
58yo M with PMHx of DM, GHTN came with 1 week of worsening LLE redness and pain and managed for cellulitis
A/P:
#LLE cellulituis with abscess on Hallux
S/P I&D by Podiatry on 05/14/24, pending wound Cx
neg for DVT
Switched to Linezolid as per ID on 05/14/24 2/2 slow improvement
follow WBC and fever curve
MRI LLE joints: There is mild subcutaneous edema and enhancement within the soft tissues along the ankle without drainable fluid collection. There is no evidence of septic arthritis or osteomyelitis of the ankle
#DM type 1 with neuropathy
Insulin SS, accuchecks, DM diet
#Essential HTN
cont home meds
DVT ppx hep
Full code
I have spent at least 37min reviewing chart, test results, communication with consultants and direct patient care
Anticipated Discharge: > 48 hours
Subjective/Interval History
-
Date of Service: May 15, 2024
Objective Data
-
Labs:
Laboratory Results
05/15/24
06:37
WBC 14.0 H
Hgb 9.8 L
Hct 27.1 L
Plt Count 378
Sodium 133 L
Potassium 4.8
Chloride 97 L
Carbon Dioxide 26
BUN 14
Creatinine 1.0
Glucose 149 H
Calcium 8.6
Vital Signs:
Vital Signs
Temp Pulse Resp BP Pulse Ox
99.8 F 82 20 135/62 94
05/15/24 07:22 05/15/24 09:17 05/15/24 07:22 05/15/24 09:17 05/15/24 07:22
I&O
05/14/24 05/15/24 05/16/24
06:59 06:59 06:59
Intake Total 1140 / 1140 840 / 840
Output Total 975 / 975
Balance 165 / 165 840 / 840
Review of Systems
-
History Source: Patient
Physical Exam
-
General: No Apparent Distress
HEENT: Normocephalic
Respiratory: Clear to Auscultation
GI: Soft, Nontender and Nondistended
Musculoskeletal: Other (LLE swelling and redness)
[2024-05-15] MEDS: NOVOLOG FLEXPEN 2 UNITS SC (13:00)
--- NOTE | 2024-05-15 14:06 | W.PN.ID1 ---
Date of Service
Date of Service: May 15, 2024
Today's Communication
Continue Linezolid.
Assessment / Plan
# Acute nonpurulent cellulitis LLE
# leukocytosis improving
# Fever resolved
# DM1 A1c 5.8
Plan:
- Suspect group a streptococcal cellulitis.
- Cellulitis slowly improving
- MRI no osteo nor septic arthritis
- Podiatry debrided left hallux plantar callus with pus expressed. Cx pending.
- s/p 4d cefazolin, changed to linezolid 600mg po bid (d2), which also acts as toxin inhibitor for strep.
- Elevate LE. Pt refuses KAIN-WRAP compression at this time due to discomfort.
- Trend wbc
- Follow clinically.
Chief Complaint
-: Cellulitis
Subjective / Review of Systems
Ankle still sore.
Vital Signs / Physical Exam
Vital Signs
Vital Signs
Temp Pulse Resp BP Pulse Ox
99.8 F 82 20 135/62 94
05/15/24 07:22 05/15/24 09:17 05/15/24 07:22 05/15/24 09:17 05/15/24 07:22
Physical Exam
Constitutional: No Acute Distress
Pulmonary: Clear
Extremities: Edema (LLE + pedal/ankle edema) and Erythema (LLE: erythema (darker) more localized to ankle and dorsum of foot, + warmth)
Wound: Other (left hallux plantar small wound dry)
Objective Data
Lab Data
Lab Results
05/15/24 06:37
05/15/24 06:37
Estimated Creat Clear 80 ml/min 05/15/24 06:37
Lactic Acid Cancelled 05/10/24 14:30
Total Bilirubin 0.5 mg/dl (0.2-1.3) 05/14/24 07:09
AST 25 U/L (17-59) 05/14/24 07:09
ALT < 10 U/L (0-50) 05/14/24 07:09
Alkaline Phosphatase 77 U/L (38-126) 05/14/24 07:09
Most recent labs reviewed.
Micro Results:
05/10/24 12:01 Blood Culture - Final
Blood/Venous No Growth - Final Report
05/14/24 20:41 Wound Culture - Pending
Foot - Left Gram Stain - Preliminary
05/10/24 10:39 Blood Culture - Final
Blood/Venous No Growth - Final Report
05/13/24 23:35 Influenza Types A & B (ERASTO) - Final
Nasal Swab Negative for Influenza A & B, NAAT
Negative results must be combined with clinical observations
and patient history.
Nucleic Acid Amplification test (NAAT)performed on the
[employer] platform.
05/10/24 17:48 MRSA Screen - Final
Nose No Methicillin Resistant Staphylococcus aureus isolated.
05/10/24 Left foot XRAY: No osseous abnormalities.
05/10/24 Peripheral vascular US: Normal. No evidence of deep venous thrombosis
05/15/24 MRI LE: There is mild subcutaneous edema and enhancement within the soft tissues along the ankle without drainable fluid collection. There is no evidence of septic arthritis or osteomyelitis of the ankle.
[2024-05-15 14:54] VITALS: BP 140/69; PULSE 75
[2024-05-15 15:58] VITALS: BP 147/66
[2024-05-15 17:08] LABS: Glucose - Point of Care 200 mg/dl (70-99)
[2024-05-15] MEDS: NOVOLOG FLEXPEN 8 UNITS SC (17:48)
[2024-05-15] MEDS: NOVOLOG FLEXPEN-LOW RESISTANCE 2 UNITS SC (17:49)
--- NOTE | 2024-05-15 19:54 | W.PN.UPDATE ---
Update Note
Progress Note Update
MRI results reviewed- no OM or septic ankle joint.
WBC 14 today.
Wound cx left great toe - neg so far post 4days cefazolin. now on Linezolid.
Continue wound care as ordered and offloading.
IDDM w/PAD LLE- avoid KAIN, may need follow up at [facility] w/ his vascular team if wound left grt toe does not decrease in size
No surgical intervention required at this time
Following
[2024-05-15 21:43] LABS: Glucose - Point of Care 152 mg/dl (70-99)
[2024-05-15 23:30] VITALS: BP 142/68
[2024-05-16 05:36] LABS: Glucose - Point of Care 241 mg/dl (70-99)
[2024-05-16] MEDS: LANTUS 0.24 UNITS SC (06:16)
--- NOTE | 2024-05-16 07:14 | PN.DE.MGMTRT ---
Insulin Management
- -
05/16/2024: Diabetes Management Follow up:
Patient admitted LLE pain redness - cellulitis. PMH: Type 1 diabetes since age 5, hx of Right foot Osteo requiring TMT amputation.
States he was taking Lantus 22 units which he takes daily in the morning and Humalog 8 units AC. Uses a CGM- Dexcom G7. He routinely sees Endocrine DrNicki Pan with [facility] and reports that his last A1C 6 months ago was 5.8%, though,
his current A1C is 9.0% Cr 1.0, eGFR >60.
05/14 Glucose down to 67 pre dinner and 68 @ hs.
05/15 Reduced moderate corrective to low and AC novolog to 8 units with breakfast and dinner and 5 units with lunch, with Lantus 24 units in AM.
05/16 No hypoglycemia. Patient stated he was not eating lunch but pre dinner glucose 200. Will make no change to regimen today.
Will follow for further needed adjustments.
Diabetes History
- -
Type of Diabetes: 1
Pre-Admission Diabetes Regimen
05/15/24
06:37
Creatinine 1.0
Lab Results
Hemoglobin A1c 9.0 % (4.0-5.6) H 05/11/24 06:51
Insulin Pump Settings
IP Diabetes Regimen
05/15/24 05/15/24 05/15/24
06:37 12:05 17:06
Glucose 149 H
POC Glucose 193 H 200 H
05/15/24 05/16/24
21:42 05:34
Glucose
POC Glucose 152 H 241 H
Patient Education
[2024-05-16 07:41] LABS: Glucose - Point of Care 260 mg/dl (70-99)
[2024-05-16 08:04] VITALS: BP 133/64
[2024-05-16 08:19] LABS: % Basophils 0.3 % (0-2); % Eosinophils 1.9 % (0-6); % Immature Granulocytes 0.5 % (0-0.5); % Lymphocytes 9.7 % (20.5-51.1); % Monocytes 8.3 % (1.7-9.3); % Neutrophils 79.3 % (42.2-75.2); Absolute Eosinophils 0.3 10^3/uL (0-0.7); Absolute Immature Granulocytes 0.1 10^3/uL (0-0.05); Absolute Lymphocytes 1.3 10^3/uL (1.2-3.4); Absolute Monocytes 1.1 10^3/uL (0.1-0.6); Absolute Neutrophils 10.3 10^3/uL (1.4-6.5); Hematocrit 28.2 % (39.0-52.0); Hemoglobin 10.2 g/dL (13.0-18.0); Mean Corp Hgb Conc. 36.2 g/dL (33.0-37.0); Mean Corpuscular Hgb 32.1 pg (27.0-31.0); Mean Corpuscular Volume 88.7 fL (80.0-94.0); Mean Platelet Volume 9.6 fL (7.4-10.4); Nucleated Red Blood Cells % 0 % (-); Platelet Count 430 10^3/uL (130-400); Red Blood Cell Count 3.18 10^6/uL (4.70-6.10); Red Cell Dist. Width 11.1 % (11.5-14.5); White Blood Cell Count 12.9 10^3/uL (4.8-10.8)
[2024-05-16] MEDS: NOVOLOG FLEXPEN-LOW RESISTANCE SC ×3 (08:37→12:33)
[2024-05-16] MEDS: NOVOLOG FLEXPEN 8 UNITS SC ×2 (08:38→15:07)
[2024-05-16] MEDS: LIPITOR 10 MG PO (08:39)
[2024-05-16] MEDS: BACTROBAN 2% OINTMENT 1 APPLIC TOPICAL (08:39)
[2024-05-16] MEDS: ASPIR LOW (ENTERIC COATED) 81 MG PO (08:39)
[2024-05-16] MEDS: VALTREX 500 MG PO ×2 (08:39→20:44)
[2024-05-16] MEDS: ZESTRIL 10 MG PO (08:39)
[2024-05-16] MEDS: ZYVOX 600 MG PO ×2 (08:39→20:44)
[2024-05-16] MEDS: HYDROPHOR 1 APPLIC TOPICAL (08:40)
[2024-05-16 12:04] VITALS: BP 133/64
--- NOTE | 2024-05-16 12:24 | W.PN.ID1 ---
Date of Service
Date of Service: May 16, 2024
Today's Communication
Add cefepime to linezolid.
Assessment / Plan
# Acute nonpurulent cellulitis LLE, slow to improve
# leukocytosis improving
# Fever resolved
# DM1 A1c 5.8
Plan:
- Suspect group a streptococcal cellulitis.
- MRI no osteo nor septic arthritis
- Podiatry debrided left hallux plantar callus with pus expressed. Cx pending.
- s/p 4d cefazolin, changed to linezolid 600mg po bid (d3), which also acts as toxin inhibitor for strep.
- Broaden abx- add cefepime for GNR coverage.
- Elevate LE. Pt refuses KAIN-WRAP compression at this time due to discomfort.
- Trend wbc
- Follow clinically.
Chief Complaint
-: Cellulitis
Subjective / Review of Systems
Has ankle pain.
Vital Signs / Physical Exam
Vital Signs
Vital Signs
Temp Pulse Resp BP Pulse Ox
99.0 F 77 18 133/64 96
05/16/24 08:04 05/16/24 08:04 05/16/24 08:04 05/16/24 08:04 05/16/24 08:04
Physical Exam
Constitutional: No Acute Distress
Extremities: Edema (left foot and ankle) and Erythema (dark erythema localized to ankle and forefoot., +warmth)
Neurological: AO x 3
Objective Data
Lab Data
Lab Results
05/16/24 08:03
05/15/24 06:37
Estimated Creat Clear 80 ml/min 05/15/24 06:37
Lactic Acid Cancelled 05/10/24 14:30
Total Bilirubin 0.5 mg/dl (0.2-1.3) 05/14/24 07:09
AST 25 U/L (17-59) 05/14/24 07:09
ALT < 10 U/L (0-50) 05/14/24 07:09
Alkaline Phosphatase 77 U/L (38-126) 05/14/24 07:09
Most recent labs reviewed.
Micro Results:
05/10/24 12:01 Blood Culture - Final
Blood/Venous No Growth - Final Report
05/14/24 20:41 Wound Culture - Pending
Foot - Left Gram Stain - Preliminary
05/10/24 10:39 Blood Culture - Final
Blood/Venous No Growth - Final Report
05/13/24 23:35 Influenza Types A & B (ERASTO) - Final
Nasal Swab Negative for Influenza A & B, NAAT
Negative results must be combined with clinical observations
and patient history.
Nucleic Acid Amplification test (NAAT)performed on the
[employer] platform.
05/10/24 17:48 MRSA Screen - Final
Nose No Methicillin Resistant Staphylococcus aureus isolated.
05/10/24 Left foot XRAY: No osseous abnormalities.
05/10/24 Peripheral vascular US: Normal. No evidence of deep venous thrombosis
05/15/24 MRI LE: There is mild subcutaneous edema and enhancement within the soft tissues along the ankle without drainable fluid collection. There is no evidence of septic arthritis or osteomyelitis of the ankle.
--- NOTE | 2024-05-16 12:49 | PN.CDI ---
Addendum entered and electronically signed by Td Ogden MD 05/16/24 13:40:
no sepsis
Original Note:
CDI
- -
CDI:
Physician Documentation Request
Admit Date: 05/10/24 13:37
Dear Doctor Melvi,
Patient admitted with LLE cellulitis. Left foot culture positive for Group G Streptococcus
05/11 patient has recorded temp of 102 T max on 05/12 102.2
Heart rates between 05/11- 81-99
WBCs
Laboratory Tests
05/11/24 05/12/24 05/13/24
06:51 07:02 06:24
WBC 13.3 H 15.6 H 16.1 H
Please clarify which of the following most accurately describes the status of the patient's infection:
Sepsis
- Systemic manifestations of infection, with 2 or more SIRS criteria which include:
- Fever >100.4 degrees F or hypothermia < 96.8 degrees F
- Leukocytosis - WBC > 12,000 or leukopenia - WBC < 4,000 or > 10% bands
- Tachycardia > 90 beats per minute
- Tachypnea - RR > 20 breaths per minute or PaCO2 , 32mmHg
Localized Infection Only, Without Systemic Illness
Other
Use of terms such as suspected, likely, concern for, or probable (associated with a specific diagnosis that is being evaluated, monitored, or treated as if it exists) are acceptable and can be coded in the inpatient setting, when documented at the
time of discharge.
Thank you,
Dori Cardona RN, BSN
CDI Specialist
tiger text
Please use your independent medical judgment in providing your response.
--- NOTE | 2024-05-16 13:01 | W.PN.HOSP.TC ---
Today's Communication/Plan
-
follow clinical improvement
Assessment / Plan
Assessment / Plan
58yo M with PMHx of DM, GHTN came with 1 week of worsening LLE redness and pain and managed for cellulitis
A/P:
#LLE cellulituis with abscess on Hallux
S/P I&D by Podiatry on 05/14/24, wound Cx with Strep G - Cefepime added on 05/16/24
neg for DVT
Switched to Linezolid as per ID on 05/14/24 2/2 slow improvement
follow WBC and fever curve
MRI LLE joints: There is mild subcutaneous edema and enhancement within the soft tissues along the ankle without drainable fluid collection. There is no evidence of septic arthritis or osteomyelitis of the ankle
#DM type 1 with neuropathy
Insulin SS, accuchecks, DM diet
#Essential HTN
cont home meds
DVT ppx hep
Full code
I have spent at least 37min reviewing chart, test results, communication with consultants and direct patient care
Anticipated Discharge: > 48 hours
Subjective/Interval History
-
Date of Service: May 16, 2024
Objective Data
-
Labs:
Laboratory Results
05/16/24
08:03
WBC 12.9 H
Hgb 10.2 L
Hct 28.2 L
Plt Count 430 H
Vital Signs:
Vital Signs
Temp Pulse Resp BP Pulse Ox
99.0 F 77 18 133/64 96
05/16/24 08:04 05/16/24 08:04 05/16/24 08:04 05/16/24 08:04 05/16/24 08:04
I&O
05/15/24 05/16/24 05/17/24
06:59 06:59 06:59
Intake Total 840 / 840 200 / 200
Balance 840 / 840 200 / 200
Review of Systems
-
History Source: Patient
All other systems: Reviewed and negative
Physical Exam
-
General: No Apparent Distress
Musculoskeletal: Edema, Left Lower Extrem (improving)
Skin: Warm and Other (LLE redness)
Neuro: Awake, Alert, Oriented and AO x 3
Psych: Calm
[2024-05-16] MEDS: MAXIPIME 2000 MG IV ×2 (13:48→21:57)
[2024-05-16] MEDS: STERILE WATER FOR INJECTION 10 ML IV ×2 (13:48→21:59)
[2024-05-16 14:31] LABS: Glucose - Point of Care 220 mg/dl (70-99)
[2024-05-16 15:00] VITALS: BP 137/64
--- NOTE | 2024-05-16 15:01 | CM ---
CM continues to follow for discharge planning.
Pt is ambulating independently and plan for discharge to home with no needs.
[2024-05-16] MEDS: NOVOLOG FLEXPEN-LOW RESISTANCE 2 UNITS SC (15:06)
--- NOTE | 2024-05-16 16:40 | W.PN.POD ---
Today's Communication
Today's Communication
D/W pt he is ok to have vascular assessment here. Arterial ultrasound ordered, and Dr Colindres consulted.
Continue mupirocin oint daily. Wound evaluated and redressed
Will order offloading shoe to keep pressure off of the wound.
Assessment / Plan
-
IDDM with PAD
IDDM with DPN
Ischemic ulcer left grt toe
Cellulitis left ankle/foot- GRP G strep per wound cx left grt toe. ABT per ID recs
Subjective
Chief Complaint
LLE cellulitis and pain
Subjective
Pt states he is still in some pain left ankle, denies F/C/malaise
Objective
Temp Pulse Resp BP Pulse Ox
97.8 F 78 18 137/64 98
05/16/24 15:00 05/16/24 15:00 05/16/24 15:00 05/16/24 15:00 05/16/24 15:00
05/16/24 08:03
05/15/24 06:37
Vital Signs and Lab results were reviewed.
Inspection: Cellulitis, Inflammation and Ulcer
Review of Systems
Review of Systems
Review of Systems: No Fever, No Chills, No Headache, No Nausea and No Diarrhea
Physical Exam
Physical Exam
General: No Apparent Distress, Comfortable and Conversant
Musculoskeletal: Edema, Left Lower Extrem
Skin: Warm, Non Pressure Ulcer and Ischemic Ulcer (left grt toe- 0.5cm2, non viable in appearance, fibronecrotic)
Neuro: AO x 3 and Protective Sensation Diminished
Vascular: Capillary Refill Delayed and Pedal Hair Absent
Dorsalis Pedis: Diminished
Posterior Tibialis: Diminished
[2024-05-16 17:39] LABS: Glucose - Point of Care 164 mg/dl (70-99)
[2024-05-16] MEDS: ROXICODONE 5 MG PO (19:11)
[2024-05-16] MEDS: FLUSH (NSS) 2 FLUSH IV (22:00)
[2024-05-16 22:18] LABS: Glucose - Point of Care 151 mg/dl (70-99)
[2024-05-16 23:55] VITALS: BP 160/73
[2024-05-17] VITALS (25 sets, daily range): BP systolic 14–160; BP diastolic 61–78
[2024-05-17 06:12] LABS: Glucose - Point of Care 170 mg/dl (70-99)
[2024-05-17] MEDS: STERILE WATER FOR INJECTION 10 ML IV ×3 (06:16→21:37)
[2024-05-17] MEDS: MAXIPIME 2000 MG IV ×3 (06:16→21:37)
[2024-05-17] MEDS: FLUSH (NSS) 2 FLUSH IV (06:21)
[2024-05-17] MEDS: NOVOLOG FLEXPEN-LOW RESISTANCE SC ×3 (06:30→17:45)
[2024-05-17 07:14] LABS: % Basophils 0.3 % (0-2); % Eosinophils 1.8 % (0-6); % Immature Granulocytes 0.5 % (0-0.5); % Lymphocytes 11.3 % (20.5-51.1); % Monocytes 6.9 % (1.7-9.3); % Neutrophils 79.2 % (42.2-75.2); Absolute Eosinophils 0.2 10^3/uL (0-0.7); Absolute Immature Granulocytes 0.1 10^3/uL (0-0.05); Absolute Lymphocytes 1.5 10^3/uL (1.2-3.4); Absolute Monocytes 0.9 10^3/uL (0.1-0.6); Absolute Neutrophils 10.2 10^3/uL (1.4-6.5); Hematocrit 29.5 % (39.0-52.0); Hemoglobin 10.1 g/dL (13.0-18.0); Mean Corp Hgb Conc. 34.2 g/dL (33.0-37.0); Mean Corpuscular Hgb 31.2 pg (27.0-31.0); Mean Platelet Volume 9.5 fL (7.4-10.4); Nucleated Red Blood Cells % 0 % (-); Platelet Count 495 10^3/uL (130-400); Red Blood Cell Count 3.24 10^6/uL (4.70-6.10); Red Cell Dist. Width 11.1 % (11.5-14.5); White Blood Cell Count 12.9 10^3/uL (4.8-10.8)
--- NOTE | 2024-05-17 07:16 | PN.DE.MGMTRT ---
Insulin Management
- -
05/17/2024: Diabetes Management Follow up:
Patient admitted LLE pain redness - cellulitis. PMH: Type 1 diabetes since age 5, hx of Right foot Osteo requiring TMT amputation.
States he was taking Lantus 22 units which he takes daily in the morning and Humalog 8 units AC. Uses a CGM- Dexcom G7. He routinely sees Endocrine DrNicki Pan with [facility] and reports that his last A1C 6 months ago was 5.8%, though,
his current A1C is 9.0% Cr 1.0, eGFR >60.
05/17 Patient is awake alert and oriented able to discuss diabetes management.
No hypoglycemia, patient refusing insulin glucose up to 220, will make no change to regimen, lantus 24 units in AM with novololg 8 units with breakfast and dinner and 5 units with lunch with low corrective insulin.
Will follow for further needed adjustments.
Diabetes History
- -
Type of Diabetes: 1
Pre-Admission Diabetes Regimen
Lab Results
Hemoglobin A1c 9.0 % (4.0-5.6) H 05/11/24 06:51
Insulin Pump Settings
IP Diabetes Regimen
05/16/24 05/16/24 05/16/24
07:39 14:29 17:35
POC Glucose 260 H 220 H 164 H
05/16/24 05/17/24
22:16 06:11
POC Glucose 151 H 170 H
Meal type: Lunch
Meal type: Breakfast
Amount consumed: 100%
Amount consumed: 100%
Patient Education
--- NOTE | 2024-05-17 07:46 | PTCARENOTE ---
Discussed NPO order with patient. Protocol to decrease Lantus explained. Patient requested to wait until seen by vascular to administer. He refused corrective insulin. Report given to next shift.
[2024-05-17 07:47] LABS: Blood Urea Nitrogen 17 mg/dl (9-20); Calcium 8.8 mg/dl (8.4-10.2); Carbon Dioxide 26 mmol/L (22-30); Chloride 98 mmol/L (98-107); Estimated Creatinine Clearance 89 ml/min; Glucose 161 mg/dl (70-99); Potassium 4.9 mmol/L (3.5-5.1); Sodium 136 mmol/L (135-145); eGFR > 60.00
[2024-05-17 08:11] LABS: Glucose - Point of Care 166 mg/dl (70-99)
--- NOTE | 2024-05-17 08:29 | CON.VAS ---
Consultation
Consultation Request
Performing Provider: Jens
Reason for Consultation: Nonhealing left great toe wound
Medical History
-
Chief Complaint: Nonhealing left great toe wound
History of Present Illness:
58-year-old male with significant past medical history for diabetes type 1, osteomyelitis of the right foot requiring a TMA in 2021, PAD, hypertension, hyperlipidemia who presented to the ER on 05/10/2024 for about 5 days of erythema to the left
lower extremity. Patient began having chills and fever associated with increased left lower extremity pain which led to his ER visit. Patient admitted for IV antibiotics.
Vascular consult for cellulitis, PAD eval. Patient follows with vascular surgeon at [facility]. He states he has had bilateral lower extremity arteriograms in the past with no intervention. He states he has small vessel disease. Per the patient he did
not have any open wounds on admission but his network desktop support specialist had noted a callus on the left great toe which was shaved down while here.
Patient seen at bedside this a.m. with Dr. Colindres. Patient admits to some difficulty healing wounds in the past. Denies stents of balloons or any vascular intervention in the past. Image of left great toe surgical debridement below.
Past Medical History
Past Medical History: HTN, Hypercholesterolemia and IDDM
Past Surgical History: Other (Right TMA)
Social History
Tobacco: Former Smoker (For 10 years)
Personal:
Employment: Employed
Family History
Family History: Reviewed & Not Pertinent
Allergies / Home Medications
Allergy/AdvReac Type Severity Reaction Status Date / Time
No Known Allergies Allergy Unverified 08/25/22 11:15
�Medication �Instructions �Recorded �Confirmed �Type
aspirin 81 mg tablet,delayed 81 mg PO DAILY Blood clot 08/25/22 05/10/24 History
release prevention/tx
atorvastatin 10 mg tablet 10 mg PO DAILY High cholesterol 08/25/22 05/10/24 History
insulin glargine 100 unit/mL (3 22 unit SC DAILY Diabetes 08/25/22 05/10/24 History
mL) subcutaneous pen (Basaglar
KwikPen U-100 Insulin)
insulin lispro 100 unit/mL 8 unit SC AC Diabetes 08/25/22 05/10/24 History
subcutaneous pen (Humalog KwikPen
(U-100) Insulin)
lisinopril 10 mg tablet 10 mg PO DAILY Blood pressure 08/25/22 05/10/24 History
ibuprofen 200 mg tablet (Advil) 600 mg PO DAILYPRN PRN mild pain 05/10/24 05/10/24 History
Review of Systems
-
History Source: Patient
All other systems: Negative unless noted
Constitutional: Reports Fever, Fatigue and Chills
EENT: Reports No Symptoms
Respiratory: Reports No Symptoms
Cardiac: Reports No Symptoms
Vascular: Denies Leg Pain / Claudication
Abdomen/GI: Reports No Symptoms
: Reports No Symptoms
Musculoskeletal: Reports Edema
Skin: Reports Other (Redness from knee to toes on left side)
Neurological: Reports No Symptoms
Physical Exam
Vital Signs
Temp Pulse Resp BP Pulse Ox
98.5 F 70 20 142/61 95
05/16/24 23:55 05/17/24 00:54 05/16/24 23:55 05/17/24 00:54 05/16/24 23:55
Lab Results
05/17/24 06:39
05/17/24 06:39
Physical Exam
General: No Apparent Distress
HEENT: Normocephalic and Atraumatic
Respiratory: Non Labored Respirations
Cardiac: Negative JVD
GI: Soft, Non Tender and Non Distended
Musculoskeletal: No Clubbing, No Cyanosis and Edema (Mild edema to the left ankle)
Skin: Warm and Other (See image above)
Neuro: Awake, Alert and Oriented
Psych: Calm
Pulses: Bilateral Femoral: +2, Left Popliteal: +1, Right Popliteal: +2 and Left Posterior Tibial: +1 (Questionable)
Assessment / Plan
-
58-year-old male with past medical history insulin-dependent diabetes, PAD, right TMA
Here with cellulitis of the left lower extremity
Plan:
-Arterial ultrasound studies today
-Possible need for arteriogram, will follow-up with patient after scans complete
Data Reviewed
-
Labs: Labs Reviewed by me
[2024-05-17] MEDS: LANTUS 0.24 UNITS SC (08:41)
[2024-05-17] MEDS: NOVOLOG FLEXPEN SC ×2 (08:47→17:15)
[2024-05-17] MEDS: VALTREX 500 MG PO ×2 (09:34→19:51)
[2024-05-17] MEDS: ZYVOX 600 MG PO ×2 (09:34→19:51)
[2024-05-17] MEDS: ZESTRIL 10 MG PO (09:35)
[2024-05-17] MEDS: ASPIR LOW (ENTERIC COATED) 81 MG PO (09:35)
[2024-05-17] MEDS: LIPITOR 10 MG PO (09:35)
--- NOTE | 2024-05-17 10:17 | W.PN.UPDATE ---
Update Note
Progress Note Update
58-year-old male with history of type 1 diabetes since childhood, history of hypertension and hypercholesterolemia, history of peripheral arterial disease (right TMA and right lower extremity angiogram, left lower extremity angiogram as well in 2021
at the [facility]). Now presents with cellulitis of the left ankle/foot/. Noted significant discomfort that led to emergency room evaluation. Seen by Dr. Bowen from podiatry. She felt he had a infected left great toe ulcer.
She sharply debrided this. Culture was taken. MRI was also ordered. MRI failed to demonstrate any significant infectious changes/osteomyelitis.
Cardiovascular risk factors as noted above, and also history of tobacco use remotely years ago less than a pack a day.
On exam/he is awake and alert. No acute distress. Breathing is unlabored. Lower extremity on the right side with 2+ femoral and popliteal pulses. Nonpalpable distally. TMA nicely healed and warm. On the left side 2+ femoral pulse palpable, 1+
or 1+/2+ popliteal pulse, nonpalpable distally. Foot is warm/erythematous. He is diffusely tender on his foot throughout the cellulitic area. There is no crepitus. No ulceration on the dorsum of the foot. On the plantar aspect of the first toe
he has this small ulceration about a centimeter diameter circular that had been debrided by the podiatry. Base looks slightly ischemic or mall perfused.
Plan/ Left first toe ulceration, likely source for cellulitis. Continue IV antibiotics for cellulitis. Likely may need attempted revascularization. Per patient's report he has small vessel disease in the past. Will obtain noninvasive studies and
see what his ABIs and duplex look like. Discussed with patient potential angiography. Discussed potential scenarios/outcomes of angiography including: #1 successful endovascular revascularization, #2 need for staged surgical bypass, #3 not
reconstructable small vessel disease. I discussed with him that in the third scenario, if that was the case then may be candidate for transcatheter arterialization of the deep vein (TADV/Limflow) in a staged fashion. Discussed the risks of
angiography including but not limited to bleeding, arterial injury/worsened or acute limb ischemia, renal failure. He understands all and wishes to proceed if necessary. Will review again once his ultrasounds are completed.
--- NOTE | 2024-05-17 11:35 | W.PN.HOSP.TC ---
Today's Communication/Plan
-
cont Abx pending VascSx mgmt
Assessment / Plan
Assessment / Plan
58yo M with PMHx of DM, GHTN came with 1 week of worsening LLE redness and pain and managed for cellulitis
A/P:
#LLE cellulituis with abscess on Hallux
#PAD
S/P I&D by Podiatry on 05/14/24, wound Cx with Strep G - Cefepime added on 05/16/24
neg for DVT
Switched to Linezolid as per ID on 05/14/24 2/2 slow improvement
follow WBC and fever curve
MRI LLE joints: There is mild subcutaneous edema and enhancement within the soft tissues along the ankle without drainable fluid collection. There is no evidence of septic arthritis or osteomyelitis of the ankle
US arterial and Vasc consult
#DM type 1 with neuropathy
Insulin SS, accuchecks, DM diet
#Essential HTN
cont home meds
DVT ppx hep
Full code
I have spent at least 37min reviewing chart, test results, communication with consultants and direct patient care
Anticipated Discharge: > 48 hours
Subjective/Interval History
-
Date of Service: May 17, 2024
Objective Data
-
Labs:
Laboratory Results
05/17/24
06:39
WBC 12.9 H
Hgb 10.1 L
Hct 29.5 L
Plt Count 495 H
Sodium 136
Potassium 4.9
Chloride 98
Carbon Dioxide 26
BUN 17
Creatinine 0.9
Glucose 161 H
Calcium 8.8
Vital Signs:
Vital Signs
Temp Pulse Resp BP Pulse Ox
98.8 F 73 18 134/71 94
05/17/24 07:42 05/17/24 07:42 05/17/24 07:42 05/17/24 07:42 05/17/24 07:42
I&O
05/16/24 05/17/24 05/18/24
06:59 06:59 06:59
Intake Total 200 / 200 0 / 0
Balance 200 / 200 0 / 0
Review of Systems
-
History Source: Patient
All other systems: Reviewed and negative
Physical Exam
-
General: No Apparent Distress
HEENT: Normocephalic
Cardiac: Regular Rhythm
Musculoskeletal: Other (RLE TMA, L shing mild swelling and redness)
Neuro: Awake, Alert, Oriented and AO x 3
Psych: Calm
[2024-05-17 12:15] LABS: Glucose - Point of Care 176 mg/dl (70-99)
[2024-05-17] MEDS: NOVOLOG FLEXPEN-LOW RESISTANCE 1 UNITS SC (13:19)
[2024-05-17] MEDS: BACTROBAN 2% OINTMENT 1 APPLIC TOPICAL (13:21)
[2024-05-17] MEDS: HYDROPHOR 1 APPLIC TOPICAL (13:22)
--- NOTE | 2024-05-17 13:35 | PTCARENOTE ---
Pt is off the floor to lab technologist at this time.
--- NOTE | 2024-05-17 14:00 | W.PN.UPDATE ---
Update Note
Progress Note Update
Discussed findings of ultrasound which confirm arterial insufficiency (JEY 0.7, toe pressure 0) for the left lower extremity. Discussed again recommendations for left lower extremity arteriogram (see my note from prior). Patient understands all
wishes to proceed with left lower extremity arteriogram.
--- NOTE | 2024-05-17 14:01 | W.SUR.PREOP ---
Pre-Operative Surgical Note
-
I have examined this patient prior to the performance of the scheduled procedure.
The patient's condition is unchanged from the time of the current History and
Physical and the patient is able to undergo the scheduled procedure.
[2024-05-17 14:34] LABS: Glucose - Point of Care 146 mg/dl (70-99)
--- NOTE | 2024-05-17 15:02 | W.PN.UPDATE ---
Update Note
Progress Note Update
Incidental finding of multiple lymph nodes noted in the right groin - repeat imaging in 4-6 weeks
--- NOTE | 2024-05-17 15:31 | W.PN.ID1 ---
Date of Service
Date of Service: May 17, 2024
Today's Communication
Continue Linezolid and cefepime for now.
Assessment / Plan
# Acute cellulitis LLE
# leukocytosis stable
# Fever resolved
# DM1 A1c 5.8
Plan:
- MRI no osteo nor septic arthritis
- Podiatry debrided left hallux plantar callus with pus expressed. Cx Group G strep
- No significant improvement on cefazolin (4d) -> dc'd
- Minimal improvement on linezolid 600mg po bid (d4), continue for now.
- Positive improvement on cefepime (d2) - continue
- PAD s/p LLE above-knee popliteal balloon angioplasty and stent placement
- Trend wbc
- Follow clinically.
Chief Complaint
-: Cellulitis
Subjective / Review of Systems
There is improvement of leg today.
Vital Signs / Physical Exam
Vital Signs
Vital Signs
Temp Pulse Resp BP Pulse Ox
98.8 F 74 18 156/68 95
05/17/24 07:42 05/17/24 13:58 05/17/24 07:42 05/17/24 13:58 05/17/24 13:58
Physical Exam
Constitutional: No Acute Distress and Comfortable
Pulmonary: Clear
Extremities: Edema (left ankle decreased) and Erythema (left foot/ankle decreased, less warmth)
Objective Data
Lab Data
Lab Results
05/17/24 06:39
05/17/24 06:39
Estimated Creat Clear 89 ml/min 05/17/24 06:39
Lactic Acid Cancelled 05/10/24 14:30
Total Bilirubin 0.5 mg/dl (0.2-1.3) 05/14/24 07:09
AST 25 U/L (17-59) 05/14/24 07:09
ALT < 10 U/L (0-50) 05/14/24 07:09
Alkaline Phosphatase 77 U/L (38-126) 05/14/24 07:09
Most recent labs reviewed.
Micro Results:
05/14/24 20:41 Wound Culture - Preliminary
Foot - Left Group G Streptococcus
Gram Stain - Preliminary
05/10/24 12:01 Blood Culture - Final
Blood/Venous No Growth - Final Report
05/10/24 10:39 Blood Culture - Final
Blood/Venous No Growth - Final Report
05/13/24 23:35 Influenza Types A & B (ERASTO) - Final
Nasal Swab Negative for Influenza A & B, NAAT
Negative results must be combined with clinical observations
and patient history.
Nucleic Acid Amplification test (NAAT)performed on the
[employer] platform.
05/10/24 17:48 MRSA Screen - Final
Nose No Methicillin Resistant Staphylococcus aureus isolated.
05/10/24 Left foot XRAY: No osseous abnormalities.
05/10/24 Peripheral vascular US: Normal. No evidence of deep venous thrombosis
05/15/24 MRI LE: There is mild subcutaneous edema and enhancement within the soft tissues along the ankle without drainable fluid collection. There is no evidence of septic arthritis or osteomyelitis of the ankle.
--- NOTE | 2024-05-17 15:34 | W.SUR.POST ---
Surgical Immediate Post Op
Note
Pre Op Diagnosis: PAD, LLE cellulitis
Post Op Diagnosis: Same
Procedure Performed: Left lower extremity angiogram, above-knee popliteal balloon angioplasty and stent placement
Primary Surgeon: Roverto Colindres MD
Secondary Surgeons: N/A
Anesthesia: MAC
Estimated Blood Loss: 2 mL
Fluids: See anesthesia flowsheet
Drains/Shunts: N/A
Specimens/Cultures: N/A
Doppler/Duplex/Angio (Y/N): Y
Complications: None
Operative Findings: Successful endovascular intervention
[2024-05-17 16:13] LABS: Glucose - Point of Care 145 mg/dl (70-99)
--- NOTE | 2024-05-17 16:27 | OR.RPT ---
Operative Report
Operative Report
PROCEDURE DATE: 05/17/2024
Preoperative diagnosis: Critical limb ischemia left lower extremity
Postoperative diagnosis: Same
Procedure:
1. Duplex assisted right common femoral artery cannulation.
2. Aortogram and pelvic angiogram.
3. Left lower extremity arteriogram with third order vessel catheterization of left posterior tibial artery via right common femoral artery puncture.
4. Balloon angioplasty and stent placement left above the knee popliteal artery with [employer] Zilver PTX 6 mm x 10 cm drug-eluting self-expanding stent.
5. Right femoral angiogram and Singh Pro-glide percutaneous suture closure right common femoral artery.
6. Supervision and interpretation.
Surgeon: Jens
Loan Operations Specialist: None
Complications: None
Anesthesia: Local, sedation
Fluoroscopy:
8.7 min
20 mGy
8.02 Gy.cm2
Indications for procedure:
Left foot first toe plantar aspect wound, necrotic ulcer that underwent debridement by podiatry. Concern for arterial insufficiency based on exam, noninvasive studies. Risk/benefits/alternatives of angiography fully discussed. Patient understood
all wished to proceed.
Description of procedure:
Patient was identified, brought to the operating room. Placed on the table in the supine position. After the adequate administration of anesthesia, the patient was prepped and draped in the standard surgical fashion. A standard preoperative
timeout was undertaken and everybody was in agreement with the plan.
The right common femoral artery was accessed with a micropuncture kit under direct duplex ultrasound guidance. A 5 Latvian sheath was then advanced over a 0.035 inch wire, and a schreiber's hook catheter was advanced into the abdominal aorta.
Aortogram and pelvic angiogram was obtained. Findings as follows:
Infrarenal aorta: Patent with no significant stenosis.
Right common iliac artery: Patent with no significant stenosis.
Right external iliac artery: Patent with no significant stenosis.
Left common iliac artery: Patent with no significant stenosis.
Left external iliac artery: Patent with no significant stenosis.
Using a floppy angled hydrophilic wire, the left common femoral artery was cannulated and the catheter was advanced. Left lower extremity arteriogram was obtained. Findings as follows:
Common femoral artery: Patent with no significant stenosis.
Profunda femoris artery: Patent with no significant stenosis in proximal or mid segments.
Superficial femoral artery: Patent with no significant stenosis.
Popliteal artery: Patent with diffuse alternating areas of opacity (noncalcified appearing) and severe stenosis with possible overlying thrombus slightly difficult to say for sure. Very irregular luminal irregularities resulting in severe stenosis
in the most distal stenosis of the diffusely stenotic segment. The segment extended approximately 8-10 cm in the above-knee popliteal artery. There was an opacity or possible plaque in the distal below the knee popliteal artery but did not result
in a significant stenosis.
Anterior tibial artery: Patent with no significant stenosis proximally. At the distal calf the artery essentially occluded with no continued flow further, no reconstituted dorsalis pedis noted on the foot.
Tibial peroneal trunk: Patent with no significant stenosis.
Peroneal artery:Patent, dominant runoff vessel to the foot. No significant stenosis appreciated, Y like collaterals noted at the ankle, but these were relatively wispy small collaterals. However, these were the dominant collaterals to the foot.
Posterior tibial artery: Patent proximally with possible severe stenosis proximally and then about 8 cm down a severe string-like stenosis. And then reconstituted flow followed by another stenosis and then occlusion with some collateralization
though relatively weak. No reconstitution noted at the level of the ankle or foot.
At this point, I felt that the patient did have distal obliterative disease. However, I thought that treating the popliteal artery lesion may provide enhanced perfusion into the collaterals to help with healing of the toe issue. Therefore, at this
point I cannulated the superficial femoral artery and then exchanged over Storq wire for 6 Latvian up and over sheath. The patient was given an appropriate dose of heparin. Then under roadmap assisted guidance using a flopping on hydrophilic wire
and a CXI catheter I traversed the area severe stenoses throughout the popliteal artery. I then gained wire access into the posterior tibial artery below the knee. I advanced my CXI catheter and then exchanged for a Storq wire. I initially
debated modality of revascularization. However given the lack of significant calcification, I did not feel that intravascular lithotripsy was necessarily warranted. In addition given the atypical appearance and some concern for possible thrombus,
I felt that better served with stenting to exclude this area. I therefore then primarily brought a 6 mm x 10 cm Cook Zilver PTX drug-eluting stent into place. I deployed in the standard fashion and then post angioplastied with a 5 mm balloon.
Completion angiogram demonstrated excellent result with no residual stenosis and good flow into the runoff. Stable flow into the runoff. At this point I satisfied. I felt that there is no other intervention to render. If the patient continues to
not heal, the only other revascularization option would be transcatheter arterialization of the deep vein (TADV/Limflow). At this point I withdrew my sheath to the right external iliac artery. Right femoral angiogram demonstrated good puncture in
the right common femoral artery. I therefore then used an [employer] Pro-glide percutaneous suture to close the common femoral artery puncture site. Manual pressure was also applied. Protamine was given reverse heparin. Hemostasis was fully achieved.
The patient tolerated procedure well. He did upon completion have a dopplerable signal in the vicinity of the posterior tibial (likely collateral based on angiographic findings).
--- NOTE | 2024-05-17 16:36 | CM ---
CM continues to follow for discharge planning.
Pt had angioplasty today. IV abx for Group G strep.
Plan: Watch for VN and IV abx needs.
[2024-05-17 17:01] LABS: Glucose - Point of Care 127 mg/dl (70-99)
--- NOTE | 2024-05-17 17:10 | PTCARENOTE ---
Addendum entered by Olivia Montes RN 05/17/24 18:41:
Per [place] DIRECTOR BUSINESS MANAGEMENT Q15 VS and checks were completed prior to arrival to floor.
Original Note:
Pt returned to the floor s/p angiogram. R groin site dressing CDI. B/L DP and PT pulses found via doppler. Neurovascular checks completed. VSS. Pt instructed that he will need to lay flat for 2 hours.
[2024-05-17] MEDS: NSS 1000 IV (17:18)
[2024-05-17] MEDS: PLAVIX 300 MG PO (17:46)
[2024-05-17 21:23] LABS: Glucose - Point of Care 97 mg/dl (70-99)
--- NOTE | 2024-05-17 22:24 | W.PN.POD ---
Today's Communication
Today's Communication
Continue abt per ID. Appreciate vascular intervention to the LLE
Continue wound care left great toe.
Assessment / Plan
-
IDDM with PAD -S/P balloon and stent to the LLE
IDDM with DPN
Ischemic ulcer left grt toe
Cellulitis left ankle/foot- GRP G strep per wound cx left grt toe. ABT per ID recs
Subjective
Chief Complaint
LLE cellulitis
Subjective
Patient resting post Agram with balloon and stent to the popliteal LLE
Objective
Temp Pulse Resp BP Pulse Ox
98.5 F 74 18 135/65 95
05/17/24 21:00 05/17/24 21:00 05/17/24 21:00 05/17/24 21:00 05/17/24 21:00
05/17/24 06:39
05/17/24 06:39
Vital Signs and Lab results were reviewed.
Inspection: Cellulitis, Inflammation and Ulcer (left great toe)
Review of Systems
Review of Systems
Review of Systems: No Chills, No Nausea and No Diarrhea
Physical Exam
Physical Exam
General: No Apparent Distress
Musculoskeletal: Edema, Left Lower Extrem
Skin: Warm, Dry and Ischemic Ulcer (left great toe - with torres wound bed. no drainage)
Neuro: AO x 3 and Protective Sensation Intact
Vascular: Capillary Refill Intact, Pedal Hair Absent and Skin Temperature Warm to Warm
Dorsalis Pedis: Diminished
Posterior Tibialis: Diminished
[2024-05-17 23:30] LABS: Glucose - Point of Care 89 mg/dl (70-99)
[2024-05-17] MEDS: ROXICODONE 5 MG PO (23:30)
[2024-05-18] MEDS: NOVOLOG FLEXPEN-LOW RESISTANCE SC ×2 (00:42→06:47)
[2024-05-18 03:29] VITALS: BP 132/66
[2024-05-18] MEDS: STERILE WATER FOR INJECTION 10 ML IV ×3 (05:10→21:52)
[2024-05-18] MEDS: MAXIPIME 2000 MG IV ×3 (05:10→21:52)
[2024-05-18 05:25] LABS: Glucose - Point of Care 121 mg/dl (70-99)
[2024-05-18] MEDS: LANTUS 0.24 UNITS SC (05:25)
[2024-05-18 06:57] VITALS: BP 142/67
--- NOTE | 2024-05-18 07:17 | PN.DE.MGMTRT ---
Insulin Management
- -
05/18/2024: Diabetes Management Follow up:
Patient admitted LLE pain redness - cellulitis. PMH: Type 1 diabetes since age 5, hx of Right foot Osteo requiring TMT amputation.
States he was taking Lantus 22 units which he takes daily in the morning and Humalog 8 units AC. Uses a CGM- Dexcom G7. He [facility] and reports that his last A1C 6 months ago was 5.8%, though,
his current A1C is 9.0% Cr 1.0, eGFR >60.
05/18 Patient is awake alert and oriented able to discuss diabetes management. Had vascular procedure yesterday.
No hypoglycemia, glucose range 89 to 166, will make no change to regimen, lantus 24 units in AM with novololg 8 units with breakfast and dinner and 5 units with lunch with low corrective insulin.
Will follow for further needed adjustments.
Diabetes History
- -
Type of Diabetes: 1
Pre-Admission Diabetes Regimen
05/17/24
06:39
Creatinine 0.9
Lab Results
Hemoglobin A1c 9.0 % (4.0-5.6) H 05/11/24 06:51
Insulin Pump Settings
IP Diabetes Regimen
05/17/24 05/17/24 05/17/24
06:39 08:09 12:14
Glucose 161 H
POC Glucose 166 H 176 H
05/17/24 05/17/24 05/17/24
14:22 16:11 16:59
Glucose
POC Glucose 146 H 145 H 127 H
05/17/24 05/17/24 05/18/24
21:21 23:28 05:22
Glucose
POC Glucose 97 89 121 H
Meal type: Lunch
Meal type: Breakfast
Patient Education
[2024-05-18] MEDS: ZYVOX 600 MG PO ×2 (08:05→20:46)
[2024-05-18] MEDS: LIPITOR 10 MG PO (08:05)
[2024-05-18] MEDS: PLAVIX 75 MG PO (08:05)
[2024-05-18] MEDS: ZESTRIL 10 MG PO (08:06)
[2024-05-18] MEDS: ASPIR LOW (ENTERIC COATED) 81 MG PO (08:06)
[2024-05-18] MEDS: VALTREX 500 MG PO ×2 (08:06→20:46)
[2024-05-18] MEDS: NOVOLOG FLEXPEN SC ×2 (08:42→16:40)
[2024-05-18 08:56] LABS: % Basophils 0.4 % (0-2); % Eosinophils 1.8 % (0-6); % Immature Granulocytes 0.6 % (0-0.5); % Lymphocytes 9.4 % (20.5-51.1); % Monocytes 6.8 % (1.7-9.3); Absolute Eosinophils 0.2 10^3/uL (0-0.7); Absolute Immature Granulocytes 0.1 10^3/uL (0-0.05); Absolute Monocytes 0.7 10^3/uL (0.1-0.6); Absolute Neutrophils 8.8 10^3/uL (1.4-6.5); Hematocrit 28.2 % (39.0-52.0); Hemoglobin 9.9 g/dL (13.0-18.0); Mean Corp Hgb Conc. 35.1 g/dL (33.0-37.0); Mean Corpuscular Hgb 31.5 pg (27.0-31.0); Mean Corpuscular Volume 89.8 fL (80.0-94.0); Mean Platelet Volume 9.2 fL (7.4-10.4); Nucleated Red Blood Cells % 0 % (-); Platelet Count 479 10^3/uL (130-400); Red Blood Cell Count 3.14 10^6/uL (4.70-6.10); Red Cell Dist. Width 11.2 % (11.5-14.5); White Blood Cell Count 10.8 10^3/uL (4.8-10.8)
--- NOTE | 2024-05-18 10:12 | W.PN.VS ---
Today's Communication / Plan
-
See below.
Assessment/Plan
-
Assessment: 58-year-old male POD #1
1. Duplex assisted right common femoral artery cannulation.
2. Aortogram and pelvic angiogram.
3. Left lower extremity arteriogram with third order vessel catheterization of left posterior tibial artery via right common femoral artery puncture.
4. Balloon angioplasty and stent placement left above the knee popliteal artery with [employer] Zilver PTX 6 mm x 10 cm drug-eluting self-expanding stent.
5. Right femoral angiogram and Singh Pro-glide percutaneous suture closure right common femoral artery.
6. Supervision and interpretation.
Plan:
Continue DAPT therapy of 81 mg aspirin p.o. daily and Plavix 75 mg p.o. daily
Continue statin therapy
Establish outpatient follow-up and ultrasounds, appointments placed in discharge instructions
We will sign off please call with questions or concerns
Subjective Data
-
Date of Service: May 18, 2024
Patient seen and examined at bedside, offers no complaints. Denies pain at right groin. Denies nausea, vomiting, fever, and chills.
Objective Data
-
Vital Signs
Temp Pulse Resp BP Pulse Ox
98.3 F 69 18 142/67 95
05/18/24 06:57 05/18/24 06:57 05/18/24 06:57 05/18/24 06:57 05/18/24 07:30
Intake and Output
05/17/24 05/18/24 05/19/24
06:59 06:59 06:59
Intake Total 0 / 0 200 / 200
Output Total 325 / 325
Balance 0 / 0 -125 / -125
Intake:
Oral fluids 0 / 0 200 / 200
Output:
Urine, Voided 325 / 325
Other:
Number of approximated MODERATE 2 2
amounts of urine
Lab Results
05/18/24 08:02
05/17/24 06:39
Calcium 8.8 mg/dl (8.4-10.2) 05/17/24 06:39
Magnesium 1.8 mg/dl (1.6-2.3) 05/14/24 07:09
Total Bilirubin 0.5 mg/dl (0.2-1.3) 05/14/24 07:09
AST 25 U/L (17-59) 05/14/24 07:09
ALT < 10 U/L (0-50) 05/14/24 07:09
Alkaline Phosphatase 77 U/L (38-126) 05/14/24 07:09
Total Protein 6.1 g/dl (6.3-8.2) L 05/14/24 07:09
Albumin 3.1 g/dl (3.5-5.0) L 05/14/24 07:09
Physical Exam
-
AAOx3, resting comfortably in bed
No tachycardia
No dyspnea on room air
ABD flat, nontender, nondistended
Right groin puncture site dressing CDI, no evidence of hematoma, all surrounding compartments soft
Bilateral feet warm
[2024-05-18 10:44] VITALS: BP 142/67; PULSE 69; O2SAT 95
--- NOTE | 2024-05-18 11:04 | W.PN.ID1 ---
Date of Service
Date of Service: May 18, 2024
Today's Communication
Tomorrow anticipate, transition to Augmentin 875mg po bid plus doxycycline 100mg po bid x 7 more days
Assessment / Plan
# Acute cellulitis LLE -improving
# PAD
# leukocytosis resolved
# Fever resolved
# DM1 A1c 5.8
Plan:
- MRI no osteo nor septic arthritis
- Podiatry debrided left hallux plantar callus with pus expressed. Cx Group G strep
-05/17 - PAD s/p LLE above-knee popliteal balloon angioplasty and stent placement
- No significant improvement on cefazolin (4d) -> dc'd
- Minimal improvement on linezolid 600mg po bid (d5), continue for now.
- Positive improvement on cefepime (d3) - continue for now.
- Tomorrow anticipate, transition to Augmentin 875mg po bid plus doxycycline 100mg po bid x 7 more days.
- Follow clinically.
Chief Complaint
-: Cellulitis
Subjective / Review of Systems
Left leg very sensitive.
Vital Signs / Physical Exam
Vital Signs
Vital Signs
Temp Pulse Resp BP Pulse Ox
98.3 F 69 18 142/67 95
05/18/24 06:57 05/18/24 06:57 05/18/24 06:57 05/18/24 06:57 05/18/24 07:30
Physical Exam
Constitutional: No Acute Distress and Comfortable
Extremities: Edema (LLE decreaasing) and Erythema (LLE foot ankle dark erythema improves with leg elevation)
Neurological: AO x 3
Objective Data
Lab Data
Lab Results
05/18/24 08:02
05/17/24 06:39
Estimated Creat Clear 89 ml/min 05/17/24 06:39
Lactic Acid Cancelled 05/10/24 14:30
Total Bilirubin 0.5 mg/dl (0.2-1.3) 05/14/24 07:09
AST 25 U/L (17-59) 05/14/24 07:09
ALT < 10 U/L (0-50) 05/14/24 07:09
Alkaline Phosphatase 77 U/L (38-126) 05/14/24 07:09
Most recent labs reviewed.
Micro Results:
05/14/24 20:41 Wound Culture - Preliminary
Foot - Left Group G Streptococcus
Gram Stain - Preliminary
05/10/24 12:01 Blood Culture - Final
Blood/Venous No Growth - Final Report
05/10/24 10:39 Blood Culture - Final
Blood/Venous No Growth - Final Report
05/13/24 23:35 Influenza Types A & B (ERASTO) - Final
Nasal Swab Negative for Influenza A & B, NAAT
Negative results must be combined with clinical observations
and patient history.
Nucleic Acid Amplification test (NAAT)performed on the
[employer] platform.
05/10/24 17:48 MRSA Screen - Final
Nose No Methicillin Resistant Staphylococcus aureus isolated.
05/10/24 Left foot XRAY: No osseous abnormalities.
05/10/24 Peripheral vascular US: Normal. No evidence of deep venous thrombosis
05/15/24 MRI LE: There is mild subcutaneous edema and enhancement within the soft tissues along the ankle without drainable fluid collection. There is no evidence of septic arthritis or osteomyelitis of the ankle.
[2024-05-18 11:09] VITALS: BP 142/64
[2024-05-18] MEDS: ROXICODONE 5 MG PO (11:15)
--- NOTE | 2024-05-18 11:39 | W.PN.HOSP.TC ---
Today's Communication/Plan
-
cont Abx
Assessment / Plan
Assessment / Plan
58yo M with PMHx of DM, GHTN came with 1 week of worsening LLE redness and pain and managed for cellulitis and PAD, s/p angio with revasc on 05/17/24
A/P:
#LLE cellulituis with abscess on Hallux
#PAD
S/P I&D by Podiatry on 05/14/24, wound Cx with Strep G - Cefepime added on 05/16/24
neg for DVT
Switched to Linezolid as per ID on 05/14/24 2/2 slow improvement
follow WBC and fever curve
MRI LLE joints: There is mild subcutaneous edema and enhancement within the soft tissues along the ankle without drainable fluid collection. There is no evidence of septic arthritis or osteomyelitis of the ankle
VascSx: s/p revasc on 05/17/24 - cont DAPT
#DM type 1 with neuropathy
Insulin SS, accuchecks, DM diet
#Essential HTN
cont home meds
DVT ppx hep
Full code
I have spent at least 37min reviewing chart, test results, communication with consultants and direct patient care
Anticipated Discharge: > 48 hours
Subjective/Interval History
-
Date of Service: May 18, 2024
Objective Data
-
Labs:
Laboratory Results
05/18/24
08:02
WBC 10.8
Hgb 9.9 L
Hct 28.2 L
Plt Count 479 H
Vital Signs:
Vital Signs
Temp Pulse Resp BP Pulse Ox
98.3 F 69 18 142/67 95
05/18/24 06:57 05/18/24 06:57 05/18/24 06:57 05/18/24 06:57 05/18/24 07:30
I&O
05/17/24 05/18/24 05/19/24
06:59 06:59 06:59
Intake Total 0 / 0 200 / 200
Output Total 325 / 325
Balance 0 / 0 -125 / -125
Review of Systems
-
History Source: Patient
All other systems: Reviewed and negative
Physical Exam
-
General: No Apparent Distress
HEENT: Normocephalic
Cardiac: Regular Rhythm
GI: Soft
Musculoskeletal: Other (LLE redness)
[2024-05-18 11:50] LABS: Glucose - Point of Care 64 mg/dl (70-99)
--- NOTE | 2024-05-18 12:19 | PTCARENOTE ---
Addendum entered by Aida Lewis RN 05/18/24 12:44:
Repeat accu check as per protocol 94. Patient remains asymptomatic.
Original Note:
Patient did not eat breakfast and refusing lunch. Patient was not given morning insulin as ordered. Accu check 64 - asymptomatic. Following hypoglycemic protocol.
[2024-05-18 12:29] LABS: Glucose - Point of Care 94 mg/dl (70-99)
[2024-05-18 14:27] LABS: Glucose - Point of Care 148 mg/dl (70-99)
[2024-05-18] MEDS: BACTROBAN 2% OINTMENT 1 APPLIC TOPICAL (14:41)
[2024-05-18] MEDS: HYDROPHOR 1 APPLIC TOPICAL (14:42)
[2024-05-18 15:57] VITALS: BP 136/70
[2024-05-18 16:22] LABS: Glucose - Point of Care 128 mg/dl (70-99)
--- NOTE | 2024-05-18 16:55 | W.PN.POD ---
Today's Communication
Today's Communication
Continue present course, abt per ID and wound care as ordered.
WBAT in DH shoe
Will follow as patient closely
Assessment / Plan
-
IDDM with PAD -S/P balloon and stent to the LLE
IDDM with DPN
Ischemic ulcer left grt toe
Cellulitis left ankle/foot- GRP G strep per wound cx left grt toe. ABT per ID recs
Subjective
Chief Complaint
cellulitis left leg
Subjective
States he is feeling better, was able to walk today with much less pain
Objective
Temp Pulse Resp BP Pulse Ox
98.4 F 69 16 136/70 97
05/18/24 15:57 05/18/24 15:57 05/18/24 15:57 05/18/24 15:57 05/18/24 15:57
05/18/24 08:02
05/17/24 06:39
Vital Signs and Lab results were reviewed.
Inspection: Cellulitis, Inflammation and Ulcer
Review of Systems
Review of Systems
Review of Systems: No Chills, No Headache and No Nausea
Physical Exam
Physical Exam
General: No Apparent Distress and Conversant
Musculoskeletal: Edema, Left Lower Extrem
Skin: Warm, Dry and Ischemic Ulcer (left great toe- stable/unchanged, fibrotic wound bed, no odor or drainage)
Neuro: AO x 3 and Protective Sensation Intact
Vascular: Capillary Refill Delayed and Skin Temperature Warm to Warm
Dorsalis Pedis: Diminished
Posterior Tibialis: Diminished
[2024-05-18 18:20] LABS: Glucose - Point of Care 104 mg/dl (70-99)
[2024-05-18] MEDS: NOVOLOG FLEXPEN 8 UNITS SC (18:36)
[2024-05-18 21:47] LABS: Glucose - Point of Care 104 mg/dl (70-99)
[2024-05-18 23:29] VITALS: BP 141/68
[2024-05-19] MEDS: ROXICODONE 5 MG PO ×2 (02:13→09:45)
[2024-05-19 03:07] LABS: Glucose - Point of Care 80 mg/dl (70-99)
[2024-05-19] MEDS: STERILE WATER FOR INJECTION 10 ML IV (06:11)
[2024-05-19] MEDS: LANTUS 0.24 UNITS SC (06:11)
[2024-05-19] MEDS: MAXIPIME 2000 MG IV (06:11)
[2024-05-19 06:13] LABS: Glucose - Point of Care 105 mg/dl (70-99)
--- NOTE | 2024-05-19 06:29 | PTCARENOTE ---
Pt had blood sugar of 105 at 0602, pt still wanted to receive morning 24 units of Lantus. Pt given apple juice. Call major is within reach.
[2024-05-19 07:00] VITALS: BP 141/70
[2024-05-19 07:10] LABS: Glucose - Point of Care 104 mg/dl (70-99)
[2024-05-19] MEDS: ZYVOX 600 MG PO (08:33)
[2024-05-19] MEDS: ZESTRIL 10 MG PO (08:33)
[2024-05-19] MEDS: PLAVIX 75 MG PO (08:33)
[2024-05-19] MEDS: LIPITOR 10 MG PO (08:33)
[2024-05-19] MEDS: ASPIR LOW (ENTERIC COATED) 81 MG PO (08:33)
[2024-05-19] MEDS: VALTREX 500 MG PO (08:33)
[2024-05-19] MEDS: NOVOLOG FLEXPEN SC (08:35)
--- NOTE | 2024-05-19 11:29 | W.PN.ID1 ---
Date of Service
Date of Service: May 19, 2024
Today's Communication
transition to Augmentin 875mg po bid plus doxycycline 100mg po bid x 7 more days.
Assessment / Plan
# Acute cellulitis LLE -improving
# PAD
# leukocytosis resolved
# Fever resolved
# DM1 A1c 5.8
Plan:
- MRI no osteo nor septic arthritis
- Podiatry debrided left hallux plantar callus with pus expressed. Cx Group G strep
-05/17 - PAD s/p LLE above-knee popliteal balloon angioplasty and stent placement
- No significant improvement on cefazolin (4d) -> dc'd
- Positive improvement on linezolid (d6) and cefepime (d4).
-Can transition to Augmentin 875mg po bid plus doxycycline 100mg po bid x 7 more days.
- DC home today.
Chief Complaint
-: Cellulitis
Subjective / Review of Systems
Leg/ankle much improved.
Vital Signs / Physical Exam
Vital Signs
Vital Signs
Temp Pulse Resp BP Pulse Ox
98.5 F 70 18 141/70 95
05/19/24 07:00 05/19/24 08:33 05/19/24 07:00 05/19/24 08:33 05/19/24 08:45
Physical Exam
Constitutional: No Acute Distress
Extremities: Other (Left foot/ankle edema and erythema continues to improve. Decreased warmth and tenderness.)
Objective Data
Lab Data
Lab Results
05/18/24 08:02
05/17/24 06:39
Estimated Creat Clear 89 ml/min 05/17/24 06:39
Lactic Acid Cancelled 05/10/24 14:30
Total Bilirubin 0.5 mg/dl (0.2-1.3) 05/14/24 07:09
AST 25 U/L (17-59) 05/14/24 07:09
ALT < 10 U/L (0-50) 05/14/24 07:09
Alkaline Phosphatase 77 U/L (38-126) 05/14/24 07:09
Most recent labs reviewed.
Micro Results:
05/14/24 20:41 Wound Culture - Preliminary
Foot - Left Group G Streptococcus
Gram Stain - Preliminary
05/10/24 12:01 Blood Culture - Final
Blood/Venous No Growth - Final Report
05/10/24 10:39 Blood Culture - Final
Blood/Venous No Growth - Final Report
05/13/24 23:35 Influenza Types A & B (ERASTO) - Final
Nasal Swab Negative for Influenza A & B, NAAT
Negative results must be combined with clinical observations
and patient history.
Nucleic Acid Amplification test (NAAT)performed on the
[employer] platform.
05/10/24 17:48 MRSA Screen - Final
Nose No Methicillin Resistant Staphylococcus aureus isolated.
05/10/24 Left foot XRAY: No osseous abnormalities.
05/10/24 Peripheral vascular US: Normal. No evidence of deep venous thrombosis
05/15/24 MRI LE: There is mild subcutaneous edema and enhancement within the soft tissues along the ankle without drainable fluid collection. There is no evidence of septic arthritis or osteomyelitis of the ankle.
Care Review
Plan reviewed with: Physician (Dr. Ogden)
--- NOTE | 2024-05-19 11:35 | W.PN.HOSP.TC ---
Today's Communication/Plan
-
dc
Assessment / Plan
Assessment / Plan
58yo M with PMHx of DM, GHTN came with 1 week of worsening LLE redness and pain and managed for cellulitis and PAD, s/p angio with revasc on 05/17/24 - Balloon angioplasty and stent placement left above the knee popliteal artery. As per ID -
switched to Augmentin and Doxy and WBC normalized, patient was afebrile, ROM, pain, redness and selling of LLE improved. Has scheduled follow up with podiatry and VascSx. Cont abx for 7 more days. medically stable and agreeable with d/c
A/P:
#LLE cellulituis with abscess on Hallux
#PAD
S/P I&D by Podiatry on 05/14/24, wound Cx with Strep G - Cefepime added on 05/16/24
neg for DVT
Switched to Linezolid as per ID on 05/14/24 2/2 slow improvement
follow WBC and fever curve
MRI LLE joints: There is mild subcutaneous edema and enhancement within the soft tissues along the ankle without drainable fluid collection. There is no evidence of septic arthritis or osteomyelitis of the ankle
VascSx: s/p revasc on 05/17/24 - cont DAPT
#DM type 1 with neuropathy
Insulin SS, accuchecks, DM diet
#Essential HTN
cont home meds
DVT ppx hep
Full code
I have spent at least 37min reviewing chart, test results, communication with consultants and direct patient care
Anticipated Discharge: Today
Subjective/Interval History
-
Date of Service: May 19, 2024
Objective Data
-
Vital Signs:
Vital Signs
Temp Pulse Resp BP Pulse Ox
98.5 F 70 18 141/70 95
05/19/24 07:00 05/19/24 08:33 05/19/24 07:00 05/19/24 08:33 05/19/24 08:45
I&O
05/18/24 05/19/24 05/20/24
06:59 06:59 06:59
Intake Total 200 / 200 750 / 750 120 / 120
Output Total 325 / 325
Balance -125 / -125 750 / 750 120 / 120
Review of Systems
-
History Source: Patient
All other systems: Reviewed and negative
Physical Exam
-
General: No Apparent Distress
HEENT: Normocephalic
Cardiac: Regular Rhythm
Musculoskeletal: Other (improved swelling ROM and redness in LLE)
Neuro: Awake, Alert, Oriented and AO x 3
--- NOTE | 2024-05-19 11:44 | W.DCSUMMARY ---
Addendum entered and electronically signed by Td Ogden MD 05/19/24 12:20:
instructions to repeat R groin CT provided to the patient upon d/c in writing
Original Note:
Discharge Summary
Discharge Data
Date of Admission: 05/10/24
Date of Discharge: 05/19/24
-
Pending Results: No
Hospital Course
58yo M with PMHx of DM, GHTN came with 1 week of worsening LLE redness and pain and managed for cellulitis and PAD, s/p angio with revasc on 05/17/24 - Balloon angioplasty and stent placement left above the knee popliteal artery. As per ID -
switched to Augmentin and Doxy and WBC normalized, patient was afebrile, ROM, pain, redness and selling of LLE improved. Has scheduled follow up with podiatry and VascSx. Cont abx for 7 more days. medically stable and agreeable with d/c
Lisinopril increased to 20mg daily and insulin regimen adjusted as per DM RN recommendations.
I have spent at least 37min reviewing chart, test results, communication with consultants and direct patient care
Patient was managed for:
#LLE cellulitis with abscess on Hallux
#PAD
#DM type 1 with neuropathy
#Essential HTN
Discharge Plan
-
Patient Disposition: Home (Routine Discharge)
Discharge Diagnosis/Procedures: LLE cellulitis
Diet: Diabetic, Carb Controlled
Activity: No strenuous activity
Driving Restrictions: No driving for 48 hours
Bathing Restrictions: OK to Shower
Others Tests: Your follow up arterial ultrasound is on 06/28/23 at 9AM here at [facility]
Stand Alone Forms: DC Instr - Vascular OR
Referrals:
Chantel Pan CRNP [Family Provider] - in four to six weeks (Incidental finding of multiple lymph nodes noted in the right groin- Repeat CT R groin area)
Judy Bowen DPM [Active] - in three to four days
Roverto Colindres MD [Active] - 06/29/24 3:30 pm
Prescriptions:
New
clopidogrel 75 mg Tablet
75 mg PO DAILY Qty: 30 0RF
amoxicillin-pot clavulanate 875-125 mg Tablet
1 tab PO Q12 Qty: 14 0RF
acetaminophen [Tylenol] 325 mg tablet
650 mg PO Q6H PRN (Reason: Pain) Qty: 90 0RF
Continued
atorvastatin 10 mg tablet
10 mg PO DAILY
aspirin 81 mg Tablet,Delayed Release (Dr/Ec)
81 mg PO DAILY
Changed
lisinopril 10 mg tablet
20 mg PO DAILY Qty: 0 0RF
insulin lispro [Humalog KwikPen Insulin] 100 unit/mL insulin pen
See Rx Instructions .ROUTE .COMPLEX Qty: 0 0RF
Rx Instructions:
5units before breakfast, 8units before lunch and dinner
insulin glargine [Basaglar KwikPen U-100 Insulin] 100 unit/mL (3 mL) insulin pen
24 unit SC DAILY Qty: 0 0RF
Discontinued
ibuprofen [Advil] 200 mg Tablet
600 mg PO DAILYPRN PRN (Reason: mild pain)
Discharge Orders:
Discharge Patient (As Directed); Ordered 05/19/24
Ordered By: Td Ogden
Discharge Date and Time
Print Language: BANGLADESHI
[2024-05-19 11:45] LABS: Glucose - Point of Care 91 mg/dl (70-99)
[2024-05-19] MEDS: AUGMENTIN 875 MG/125 MG 1 TABLET PO (12:15)
[2024-05-19] MEDS: VIBRAMYCIN 100 MG PO (12:15)
[2024-05-19] MEDS: BACTROBAN 2% OINTMENT 1 APPLIC TOPICAL (12:17)
[2024-05-19] MEDS: HYDROPHOR 1 APPLIC TOPICAL (12:18)
[2024-05-19] MEDS: STERILE WATER FOR INJECTION IV (12:37)
[2024-05-19 13:25] VITALS: BP 135/72
== END 2024-05-19 14:02 | disposition home or self-care (01) | DRG 253 ==
LOC: 4 EAST ACU 13:37
PROVIDERS: Clinical Nurse Specialist Family Health; Nurse Practitioner Gerontology; Physician Assistant Medical; ADMITTING PHYSICIAN Internal Medicine; ATTENDING PHYSICIAN Internal Medicine; CONSULT PHYSICIAN Podiatrist Foot & Ankle Surgery; EMERGENCY PHYSICIAN Emergency Medicine; FAMILY PHYSICIAN Nurse Practitioner Adult Health; OTHER PHYSICIAN Internal Medicine Infectious Disease; OTHER PHYSICIAN Surgery Vascular Surgery
PROC: 0JBR0ZZ Excision of Left Foot Subcutaneous Tissue and Fascia, Open Approach (ICD-10-PCS; 2024-05-14)
PROC: 047N34Z Dilation of Left Popliteal Artery with Drug-eluting Intraluminal Device, Percutaneous Approach (ICD-10-PCS; 2024-05-17)
PROC: B41D1ZZ Fluoroscopy of Aorta and Bilateral Lower Extremity Arteries using Low Osmolar Contrast (ICD-10-PCS; 2024-05-17)
DX: E10.52 Type 1 diabetes mellitus with diabetic peripheral angiopathy with gangrene (principal); I70.262 Atherosclerosis of native arteries of extremities with gangrene, left leg; L02.612 Cutaneous abscess of left foot; L03.116 Cellulitis of left lower limb; E10.40 Type 1 diabetes mellitus with diabetic neuropathy, unspecified; I74.3 Embolism and thrombosis of arteries of the lower extremities; E10.621 Type 1 diabetes mellitus with foot ulcer; L97.529 Non-pressure chronic ulcer of other part of left foot with unspecified severity; I10 Essential (primary) hypertension; E78.00 Pure hypercholesterolemia, unspecified; B95.4 Other streptococcus as the cause of diseases classified elsewhere; Z79.82 Long term (current) use of aspirin; Z79.4 Long term (current) use of insulin; Z89.431 Acquired absence of right foot; Z86.14 Personal history of Methicillin resistant Staphylococcus aureus infection; Z87.891 Personal history of nicotine dependence; Z11.52 Encounter for screening for COVID-19
CPT/HCPCS: 37226; 73590; 73630; 73723; 75625; 75716; 80048; 80053; 82962; 83036; 83605; 83735; 85025; 87040; 87070; 87077; 87147; 87205; 87502; 87811; 93922; 93925; 93970; 96365; 96366; 96367; 97110; 97162; 97166; 97530; 99285; A9575; C1760; C1769; C1874; C1887; C1894; Q9967

== ENCOUNTER → 2024-06-07 17:03 | Outpatient (REF) | payer BC, SELFPAY | LOC: MRI 17:03 | PROVIDERS: ATTENDING PHYSICIAN Podiatrist Foot & Ankle Surgery | DX: M86.172 Other acute osteomyelitis, left ankle and foot (principal); L02.612 Cutaneous abscess of left foot | CPT/HCPCS: 73720; A9575 ==

== ENCOUNTER 2024-06-15 06:21 | Day surgery (SDC) | payer BC, SELFPAY ==
--- NOTE | 2024-06-13 09:48 | PTCARENOTE ---
Addendum entered by Jacqueline Wylie RN 06/13/24 13:04:
Dr. Conte notified of patients hgb- no further actions required
Original Note:
Patients 05/18 Hgb 9.9- Didi @ Dr. Huerta office emailed
[2024-06-15 13:58] VITALS: BMI 23.4
[2024-06-15 13:59] VITALS: BP 177/92
[2024-06-15 14:24] LABS: Glucose - Point of Care 172 mg/dl (70-99)
[2024-06-15] MEDS: NORMOSOL-R/PLASMALYTE-A 1000 IV (14:24)
[2024-06-15 15:25] VITALS: BP 128/72
[2024-06-15 15:30] VITALS: BP 133/79
[2024-06-15 15:45] VITALS: BP 147/72
[2024-06-15 16:00] VITALS: BP 154/74
[2024-06-15 16:11] VITALS: BP 160/75
== END 2024-06-15 16:30 | disposition home or self-care (01) ==
LOC: SDS 06:21
PROVIDERS: ATTENDING PHYSICIAN Podiatrist Foot & Ankle Surgery
DX: L02.612 Cutaneous abscess of left foot (principal); M65.072 Abscess of tendon sheath, left ankle and foot; S90.932A Unspecified superficial injury of left great toe, initial encounter; X58.XXXA Exposure to other specified factors, initial encounter
CPT/HCPCS: 10061; 82962; 87070; 87075; 87205

== ENCOUNTER → 2024-08-03 12:58 | Outpatient (REF) | payer BC, SELFPAY | LOC: RAD 12:58 | PROVIDERS: ATTENDING PHYSICIAN Surgery Vascular Surgery | DX: I73.9 Peripheral vascular disease, unspecified (principal) | CPT/HCPCS: 93922; 93925 ==